=== PATIENT | female | born 1970 | race African-American/Black ===

== ENCOUNTER 2016-10-17 17:38 | Emergency (ER) | payer OTHER ==
[2016-10-17 17:41] VITALS: TEMP 98.2; BMI 48.1
[2016-10-17] MEDS ORDERED: ALBUTEROL SO4 0.083% IH SOL 2.5 MG/3 ML VIAL.NEB. NEB ONE ×4 (18:24→18:50)
[2016-10-17] MEDS ORDERED: methylPREDNISolone NA SUCC 125 MG/2 ML VIAL IVPB ONE (18:44)
[2016-10-17] MEDS ORDERED: FAMOTIDINE 20 MG/50 ML IVPB 50 ML IVPB ONE ×2 (18:46→18:51)
--- NOTE | 2016-10-17 18:47 | PDOC ---
[id number] is a 45 year old female with a PMHx of obesity, HTN, angioedema, anemia who presents to the ED with wheezing, cough, fever (Tmax = 102) for 2 days. She reports green productive cough. She reports that she is developing chest tightness with the wheezing and difficulty breathing. She is also reporting some cramps in her lower extremities. She denies nausea, vomiting, diarrhea, and constipation. She denies headache, dizziness. <Gudelia Chavez - Last Filed: 10/17/16 18:50> - General History Source: Patient Exam Limitations: No Limitations <Franklin Blair - Last Filed: 10/24/16 13:03> - General Chief Complaint: Chest Pain Stated Complaint: CHEST PAIN/ABD PAIN/BACK PAIN Time Seen by Provider: 10/17/16 18:43 Past History <Gudelia Chavez - Last Filed: 10/17/16 18:50> - Past Medical History Anemia: Yes Asthma: No GI Disorders: Yes HTN: Yes Psychiatric Problems: Yes (ANXIETY.) - Immunization History Immunization Up to Date: Yes - Psycho/Social/Smoking Cessation Hx Anxiety: Yes Suicidal Ideation: No Smoking Status: No Smoking History: Never smoked Have you smoked in the past 12 months: No Number of Cigarettes Smoked Daily: 0 If you are a former smoker, when did you quit?: 2002 Information on smoking cessation initiated: No Hx Alcohol Use: No Drug/Substance Use Hx: No Substance Use Type: None <Franklin Blair - Last Filed: 10/24/16 13:03> - Past Medical History Allergies/Adverse Reactions: Allergies Allergy/AdvReac Type Severity Reaction Status Date / Time Penicillins Allergy Unknown Verified 10/17/16 17:42 Fish Containing Products Allergy Verified 10/17/16 17:42 fish derived Allergy Itching Verified 10/17/16 17:42 RICARDO Inhibitors AdvReac Verified 10/17/16 17:42 Iodinated Contrast Media - AdvReac Verified 10/17/16 17:42 Oral and Home Medications: Ambulatory Orders Albuterol 2.5/Ipratropium 0.5 [Duoneb -] 1 amp NEB TID PRN #30 amp 10/18/16 Albuterol Sulfate Inhaler - [Ventolin HFA Inhaler -] 2 puff IH TID PRN #1 inhaler 10/18/16 Azithromycin [Zithromax Tri-Antonio (3 DAYS) -] 500 mg PO DAILY #3 tablet 10/18/16 Guaifenesin Dm [Robitussin Dm] 10 ml PO Q4H #1 bottle 10/18/16 Ibuprofen 800 mg PO TID PRN #30 tablet MDD 3 10/18/16 Review of Systems - Review of Systems Comments:: 10/17/16 18:50 GENERAL/CONSTITUTIONAL: (+) fever No chills. No weakness. HEAD, EYES, EARS, NOSE AND THROAT: No change in vision. No ear pain or discharge. No sore throat. CARDIOVASCULAR: (+) chest pain, shortness of breath. RESPIRATORY: (+) cough, wheezing, No hemoptysis. GASTROINTESTINAL: No nausea, vomiting, diarrhea or constipation. GENITOURINARY: No dysuria, frequency, or change in urination. MUSCULOSKELETAL: (+) lower extremity cramping. No joint or muscle swelling or pain. No neck or back pain. SKIN: No rash NEUROLOGIC: No headache, vertigo, loss of consciousness, or change in strength/ sensation. ENDOCRINE: No increased thirst. No abnormal weight change. HEMATOLOGIC/LYMPHATIC: No anemia, easy bleeding, or history of blood clots. ALLERGIC/IMMUNOLOGIC: No hives or skin allergy. <Gudelia Chavez - Last Filed: 10/17/16 18:50> *Physical Exam - Vital Signs Last Vital Signs Temp Pulse Resp BP Pulse Ox 98.2 F 90 26 H 140/63 100 10/17/16 17:39 10/17/16 18:48 10/17/16 18:48 10/17/16 18:48 10/17/16 18:48 - Physical Exam Comments: 10/17/16 18:51 GENERAL: Awake, alert, and fully oriented, obese HEAD: No signs of trauma EYES: PERRLA, EOMI, sclera anicteric, conjunctiva clear ENT: Auricles normal inspection, hearing grossly normal, nares patent, oropharynx clear without exudates. Moist mucosa NECK: Normal ROM, supple, no lymphadenopathy, JVD, or masses LUNGS: Diffuse expiratory wheezing. Speaking a few sentences. HEART: Regular rate and rhythm, normal S1 and S2, no murmurs, rubs or gallops ABDOMEN: Soft, nontender, normoactive bowel sounds. No guarding, no rebound. No masses EXTREMITIES: Normal range of motion, no edema. No clubbing or cyanosis. No cords, erythema, or tenderness NEUROLOGICAL: Cranial nerves II through XII grossly intact. Normal speech, normal gait SKIN: Warm, Dry, normal turgor, no rashes or lesions noted. <Gudelia Chavez A - Last Filed: 10/17/16 18:50> - Vital Signs Last Vital Signs Temp Pulse Resp BP Pulse Ox 98.2 F 113 H 20 139/98 99 10/17/16 17:39 10/17/16 17:39 10/17/16 17:39 10/17/16 17:39 10/17/16 17:39 <Franklin Blair - Last Filed: 10/24/16 13:03> Heart Score/ECG Review #1 ECG reviewed & interpreted by me at: 17:50 10/17/16 19:06 NSR 93, no std/paris, TWI III, normal axis, normal intervals, QTC 422 msec <Franklin Blair - Last Filed: 10/24/16 13:03> ED Treatment Course - Medications Given in the ED: ED Medications Discontinued Medications Generic Name Dose Route Start Last Admin Trade Name Freq PRN Reason Stop Dose Admin Albuterol Sulfate 1 amp 10/17/16 18:24 10/17/16 18:44 Ventolin 0.083% Nebulizer Soln - NEB 10/17/16 18:25 1 amp ONCE ONE Administration <Gudelia Chavez A - Last Filed: 10/17/16 18:50> - LABORATORY CBC & Chemistry Diagram: 10/17/16 18:40 10/17/16 21:52 - RADIOLOGY Radiology Studies Ordered: Category Date Time Status CHEST X-RAY PORTABLE* [RAD] Stat Radiology 10/17/16 18:44 Ordered - Medications Given in the ED: ED Medications Discontinued Medications Generic Name Dose Route Start Last Admin Trade Name Freq PRN Reason Stop Dose Admin Albuterol Sulfate 1 amp 10/17/16 18:24 10/17/16 18:44 Ventolin 0.083% Nebulizer Soln - NEB 10/17/16 18:25 1 amp ONCE ONE Administration <Franklin Blair - Last Filed: 10/24/16 13:03> Medical Decision Making - Medical Decision Making 10/17/16 18:45 A portion of this note was documented by scribe services under my direction. I have reviewed the details of the note, within reason, and agree with the documentation with the following case summary and management plan written by me. Patient treated in the ED. Nursing notes are reviewed and incorporated into the medical decision-making. Vital signs reviewed. Peripheral IV access obtained by the nurse, laboratory studies are drawn and sent, reviewed and interpreted by myself. Vital Signs Temp Pulse Resp BP Pulse Ox 98.2 F 113 H 20 139/98 99 10/17/16 17:39 10/17/16 17:39 10/17/16 17:39 10/17/16 17:39 10/17/16 17:39 45-year-old female with past medical history obesity, hypertension, angioedema, anemia presents with wheezing, cough and fevers for 2 days. Patient reports MAXIMUM TEMPERATURE of the 102 at home. She states that she's been having some greenish productive cough. Has been increasing difficulty breathing or wheezing. Patient's been given albuterol the past but denies history of asthma. Has not user upper or medications. She reports that she is developing chest tightness with the wheezing and difficulty breathing. She is also reporting some cramps in her lower extremities. We'll need to rule out upper respiratory infection such as bronchitis, pneumonia. We'll rule out influenza. Chest x-ray, labs including cultures and lactic acid. Nebulizers and steroids. Likely will need to initiate antibiotics and reassess. 10/17/16 19:02 Case signed out to [facility] ED attending DR. Lemus for further management and disposition. <Franklin Blair - Last Filed: 10/24/16 13:03> *DC/Admit/Observation/Transfer - Attestations Scribe Attestion: 10/17/16 18:51 Documentation prepared by Gudelia Chavez, acting as senior medical writer for Franklin Blair MD. <Gudelia Chavez - Last Filed: 10/17/16 18:50> <Franklin Blair - Last Filed: 10/24/16 13:03> Diagnosis at time of Disposition: Viral bronchitis, Cough, Abdominal pain, Abdominal muscle strain - Discharge Dispostion Disposition: HOME Condition at time of disposition: Stable - Prescriptions Prescriptions: Albuterol 2.5/Ipratropium 0.5 [Duoneb -] 1 amp NEB TID PRN #30 amp PRN Reason: Wheezing Ibuprofen 800 mg PO TID PRN #30 tablet MDD 3 PRN Reason: Pain Guaifenesin Dm [Robitussin Dm] 10 ml PO Q4H #1 bottle Albuterol Sulfate Inhaler - [Ventolin HFA Inhaler -] 2 puff IH TID PRN #1 inhaler PRN Reason: Wheezing Azithromycin [Zithromax Tri-Antonio (3 DAYS) -] 500 mg PO DAILY #3 tablet
[2016-10-17 18:48] VITALS: BP 140/63; PULSE 90
[2016-10-17] MEDS ORDERED: methylPREDNISolone NA SUCC 125 MG/2 ML VIAL ONE (18:50)
[2016-10-17 19:00] LABS: BASOPHIL 0.8 % (0-2.0); EOSINOPHIL 10.2 % (0-4.5); MCH 26.8 pg (25.7-33.7); MCHC 32.9 g/dl (32.0-36.0); MEAN CELL VOLUME 81.6 fl (80-96); MEAN PLT VOLUME 9.3 fl (7.5-11.1); NEUTROPHILS 54.8 % (42.8-82.8); PLATELET COUNT 328 K/MM3 (134-434); RDW 16.8 % (11.6-15.6); WHITE BLOOD COUNT 6.6 K/mm3 (4.0-10.0)
[2016-10-17 19:47] LABS: PLATELET COMMENT2 FEW LARGE PLTS; PLATELET ESTIMATE ADEQUATE (NORMAL)
[2016-10-17] MEDS ORDERED: MAGNESIUM SULF 50% (8.12 MEQ/2 ML-1 GM VIAL) IVPB ONE (22:06)
--- NOTE | 2016-10-17 22:08 | PDOC ---
*Physical Exam - Vital Signs Last Vital Signs Temp Pulse Resp BP Pulse Ox 98.2 F 90 26 H 140/63 100 10/17/16 17:39 10/17/16 18:48 10/17/16 18:48 10/17/16 18:48 10/17/16 18:48 ED Treatment Course - LABORATORY CBC & Chemistry Diagram: 10/17/16 18:40 10/17/16 21:52 - ADDITIONAL ORDERS Additional order review: Laboratory Results 10/17/16 10/17/16 10/17/16 18:40 18:40 18:40 Sodium Cancelled Potassium Cancelled Chloride Cancelled Carbon Dioxide Cancelled Anion Gap Cancelled BUN Cancelled Creatinine Cancelled Creat Clearance w eGFR Cancelled Random Glucose Cancelled Lactic Acid 0.774 Calcium Cancelled Total Bilirubin Cancelled AST Cancelled ALT Cancelled Alkaline Phosphatase Cancelled Creatine Kinase Cancelled Troponin I Cancelled Total Protein Cancelled Albumin Cancelled Lipase Cancelled Serum , Qual Negative 10/17/16 18:48 Influenza Types A,B Antigen (LISA) - Final Nasopharyngeal Swab - Final 10/17/16 18:40 RBC 4.51 MCV 81.6 MCHC 32.9 RDW 16.8 H D MPV 9.3 Neutrophils % 54.8 Lymphocytes % 24.4 D Monocytes % 9.8 Eosinophils % 10.2 H D Basophils % 0.8 - Medications Given in the ED: ED Medications Discontinued Medications Generic Name Dose Route Start Last Admin Trade Name Ederq PRN Reason Stop Dose Admin Albuterol Sulfate 1 amp 10/17/16 18:24 10/17/16 18:44 Ventolin 0.083% Nebulizer Soln - NEB 10/17/16 18:25 1 amp ONCE ONE Administration Albuterol Sulfate 2 amp 10/17/16 18:45 10/17/16 18:58 Ventolin 0.083% Nebulizer Soln - NEB 10/17/16 18:46 2 amp ONCE ONE Administration Famotidine/Sodium Chloride 50 mls @ 100 mls/hr 10/17/16 18:46 10/17/16 19:30 Pepcid 20 Mg Premixed Ivpb - IVPB 10/17/16 19:15 100 mls/hr ONCE ONE Administration Methylprednisolone Sodium Succinate 125 mg 10/17/16 18:44 10/17/16 18:50 Solu-Medrol - IVPB 10/17/16 18:45 125 mg ONCE ONE Administration Medical Decision Making - Medical Decision Making 10/17/16 22:07 Pt received on sign out comfortable; still have wheezing. She will be observedl ; magnesium is ordered. 10/18/16 01:21 She is much clearer and feels subjective;y improved. She will be discharged with negative evaluation; azithromycin 3 day pack, albuterol/ipratropium. MDI albuterol; she has follow up scheduled with the PMD and I have encouraged the patient to return if there is any change otherwise in symptoms. *DC/Admit/Observation/Transfer Diagnosis at time of Disposition: Viral bronchitis, Cough Abdominal pain Qualifiers: Abdominal location: generalized Qualified Code(s): R10.84 - Generalized abdominal pain Abdominal muscle strain Qualifiers: Encounter type: initial encounter Qualified Code(s): S39.011A - Strain of muscle, fascia and tendon of abdomen, initial encounter - Discharge Dispostion Disposition: HOME Condition at time of disposition: Good Admit: No Decision to Admit order Date/Time: 10/18/16 01:23 - Prescriptions Prescriptions: Albuterol 2.5/Ipratropium 0.5 [Duoneb -] 1 amp NEB TID PRN #30 amp PRN Reason: Wheezing Ibuprofen 800 mg PO TID PRN #30 tablet MDD 3 PRN Reason: Pain Guaifenesin Dm [Robitussin Dm] 10 ml PO Q4H #1 bottle Albuterol Sulfate Inhaler - [Ventolin HFA Inhaler -] 2 puff IH TID PRN #1 inhaler PRN Reason: Wheezing Azithromycin [Zithromax Tri-Antonio (3 DAYS) -] 500 mg PO DAILY #3 tablet
[2016-10-17] MEDS ORDERED: MAGNESIUM SULF 50% (8.12 MEQ/2 ML-1 GM VIAL) ONE (22:17)
[2016-10-17 22:55] LABS: ALBUMIN 3.6 g/dl (3.4-5.0); ANION GAP 9 (8-16); BILIRUBIN,TOTAL 0.3 mg/dL (0.2-1.0); CALCIUM 8.6 mg/dL (8.5-10.1); CO2 24 mmol/L (21-32); CREATININE 0.6 mg/dL (0.55-1.02); GLUCOSE,RANDOM 110 mg/dL (74-106); SGOT/AST 21 U/L (15-37); SGPT/ALT 25 U/L (12-78); TOT PROT 7.8 g/dl (6.4-8.2)
[2016-10-17 22:58] LABS: ALK PHOS 108 U/L (45-117); TROPONIN I < 0.02 ng/ml (0.00-0.05)
[2016-10-18] MEDS ORDERED: OXYCODONE/APAP 5/325MG COMBO TABLET PO ONE (00:09)
[2016-10-18] MEDS ORDERED: OXYCODONE/APAP 5/325MG COMBO TABLET ONE (00:14)
[2016-10-18 01:05] LABS: PH,URINE 5.5 (5.0-8.0); URINE APPEARANCE TURBID; URINE BILIRUBIN NEGATIVE (NEGATIVE); URINE BLOOD 3+ (NEGATIVE); URINE COLOR RED; URINE GLUCOSE (UA) NEGATIVE (NEGATIVE); URINE KETONE TRACE (NEGATIVE); URINE LEUK ESTERASE NEGATIVE (NEGATIVE); URINE NITRITE NEGATIVE (NEGATIVE); URINE PROTEIN 1+ (NEGATIVE); URINE UROBILINOGEN 0.2 E.U/dl E.U./dl (0.2-1.0)
[2016-10-18 01:07] LABS: URINE BACTERIA FEW /hpf (NONE SEEN); URINE RBC >100 /hpf (0-3); URINE WBC NONE SEEN /hpf (3-5)
--- NOTE | 2016-10-18 12:47 | EKG ---
Test Reason : Blood Pressure : / mmHG Vent. Rate : 093 BPM Atrial Rate : 093 BPM P-R Int : 150 ms QRS Dur : 072 ms QT Int : 340 ms P-R-T Axes : 038 004 009 degrees QTc Int : 422 ms NORMAL SINUS RHYTHM POSSIBLE LEFT ATRIAL ENLARGEMENT BORDERLINE ECG WHEN COMPARED WITH ECG OF 08-APR-2016 06:10, NO SIGNIFICANT CHANGE WAS FOUND BASELINE ARTIFACT Confirmed by JAYLA BEAR, JOY ([id number]) on 10/18/2016 12:47:31 PM Referred By: Confirmed By:JOY DICKERSON MD
== END 2016-10-18 01:37 | disposition home or self-care (01) ==
LOC: JER 17:38
PROC: 3E0F7GC Introduction of Other Therapeutic Substance into Respiratory Tract, Via Natural or Artificial Opening (ICD-10-PCS; principal; 2016-10-17)
PROC: 3E0F7GC Introduction of Other Therapeutic Substance into Respiratory Tract, Via Natural or Artificial Opening (ICD-10-PCS; 2016-10-17)
PROC: 3E033GC Introduction of Other Therapeutic Substance into Peripheral Vein, Percutaneous Approach (ICD-10-PCS; 2016-10-17)
DX: J20.8 Acute bronchitis due to other specified organisms (principal); B97.89 Other viral agents as the cause of diseases classified elsewhere; S39.011A Strain of muscle, fascia and tendon of abdomen, initial encounter; X58.XXXA Exposure to other specified factors, initial encounter; Y93.89 Activity, other specified; Y92.9 Unspecified place or not applicable
CPT/HCPCS: 36415; 71010-TC; 80053; 81003; 81015; 82550; 83605; 83690; 84484; 84703; 85025; 87040; 87804; 93005; 93010; 99285-25

== ENCOUNTER 2017-05-06 19:13 | Emergency (ER) | payer OTHER ==
[2017-05-06 19:19] VITALS: BMI 51.2
[2017-05-06] MEDS ORDERED: ALBUTEROL SO4 2.5/IPRATROPIUM 0.5 INH SOL 3 ML VIAL.NEB. NEB ONE ×2 (19:30→20:27)
--- NOTE | 2017-05-06 19:41 | PDOC ---
History of Present Illness - General History Source: Patient Exam Limitations: No Limitations - History of Present Illness Initial Comments: 05/06/17 20:12 The patient is a 46 year old female, with a significant past medical history of asthma (diagnosed within the past year) obesity, HTN, anxiety, angioedema, and anemia, who presents to the emergency department with shortness of breath and chest pain for approximately 2 days. The patient reports developing shortness of breath, chest pain, midline back pain, and a cough 2 days ago. Patient reports her chest pain is localized midsternally, nonradiating in nature, and exacerbated with cough. She reports her cough is productive of clear sputum, but denies any fever, chills, headache, or dizziness. She reports some palpitations, but denies diaphoresis or lower extremity edema. Patient reports she typically uses an Albuterol inhaler for her symptoms, but states it has not been helping. She reports associated nausea and vomiting(X3 episodes, nonbloody/ nonbilious), but denies any abdominal pain, diarrhea, or constipation. 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 She admits she has not had her flu shot, and denies any recent travel. Allergies: Penicillins, RICARDO inhibitors, iodinated contrast Past Surgical History: Left pinky Social History: 1 cigar a week. Former smoker(Quit 2003, but started again). No ETOH or recreational drug use. PCP: Dr. Britney Wang <Casey Maloney - Last Filed: 05/06/17 20:11> <Liyah Zavala - Last Filed: 05/08/17 01:08> - General Chief Complaint: Asthma Stated Complaint: CHEST PAIN Time Seen by Provider: 05/06/17 19:21 Past History <Casey Maloney - Last Filed: 05/06/17 20:11> - Past Medical History Anemia: Yes Asthma: No COPD: No GI Disorders: Yes HTN: Yes Psychiatric Problems: Yes (ANXIETY.) - Immunization History Immunization Up to Date: Yes - Suicide/Smoking/Psychosocial Hx Smoking Status: No Smoking History: Never smoked Have you smoked in the past 12 months: No Number of Cigarettes Smoked Daily: 0 If you are a former smoker, when did you quit?: 2002 Hx Alcohol Use: No Drug/Substance Use Hx: No Substance Use Type: None <Liyah Zavala - Last Filed: 05/08/17 01:08> - Past Medical History Allergies/Adverse Reactions: Allergies Allergy/AdvReac Type Severity Reaction Status Date / Time Penicillins Allergy Unknown Verified 05/06/17 19:19 Fish Containing Products Allergy Verified 05/06/17 19:19 fish derived Allergy Itching Verified 05/06/17 19:19 RICARDO Inhibitors AdvReac Verified 05/06/17 19:19 Iodinated Contrast- Oral and AdvReac Verified 05/06/17 19:19 IV Dye Home Medications: Ambulatory Orders Albuterol 2.5/Ipratropium 0.5 [Duoneb -] 1 amp NEB TID PRN #30 amp 10/18/16 Albuterol Sulfate Inhaler - [Ventolin HFA Inhaler -] 2 puff IH TID PRN #1 inhaler 10/18/16 Albuterol 0.083% Nebulizer Alisha [Ventolin 0.083% Nebulizer Soln -] 1 neb NEB Q6H #20 vial 05/06/17 Amlodipine Besylate [Norvasc -] 2.5 mg PO DAILY 05/06/17 Azithromycin [Zithromax -] 500 mg PO DAILY #4 tablet 05/06/17 Diphenhydramine HCl [Benadryl -] 25 mg PO Q6H #28 capsule 05/06/17 Esomeprazole Mag Trihydrate [NexIUM for SUSP] 40 mg PO DAILY 05/06/17 Prednisone [Deltasone -] 2 tab PO DAILY #10 tablet 05/06/17 Review of Systems - Review of Systems Able to Perform ROS?: Yes Comments:: 05/06/17 20:13 GENERAL/CONSTITUTIONAL: No fever or chills. No weakness. HEAD, EYES, EARS, NOSE AND THROAT: No change in vision. No ear pain or discharge. No sore throat. CARDIOVASCULAR: Yes chest pain and shortness of breath. RESPIRATORY: Yes cough productive of clear sputum. No wheezing, or hemoptysis. GASTROINTESTINAL: Yes nausea, vomiting. No diarrhea or constipation. GENITOURINARY: No dysuria, frequency, or change in urination. MUSCULOSKELETAL: Yes midline back pain. No joint or muscle swelling or pain. No neck pain. SKIN: No rash NEUROLOGIC: No headache, vertigo, loss of consciousness, or change in strength/ sensation. ENDOCRINE: No increased thirst. No abnormal weight change. HEMATOLOGIC/LYMPHATIC: No anemia, easy bleeding, or history of blood clots. ALLERGIC/IMMUNOLOGIC: No hives or skin allergy. <Casey Maloney - Last Filed: 05/06/17 20:11> *Physical Exam - Vital Signs Last Vital Signs Temp Pulse Resp BP Pulse Ox 98.4 F 101 H 20 114/88 99 05/06/17 19:16 05/06/17 19:16 05/06/17 19:16 05/06/17 19:16 05/06/17 19:16 - Physical Exam Comments: 05/06/17 20:14 GENERAL: Awake, alert, and fully oriented, in no acute distress HEAD: No signs of trauma EYES: PERRLA, EOMI, sclera anicteric, conjunctiva clear ENT: Auricles normal inspection, hearing grossly normal, nares patent, oropharynx clear without exudates. Moist mucosa NECK: Normal ROM, supple, no lymphadenopathy, JVD, or masses LUNGS: Breath sounds equal, clear to auscultation bilaterally. No wheezes, and no crackles HEART: Tachycardic. Regular rhythm, normal S1 and S2, no murmurs, rubs or gallops ABDOMEN: Soft, nontender, normoactive bowel sounds. No guarding, no rebound. No masses BACK: Midline tenderness T10-L2, reproducible to palpation. EXTREMITIES: Normal range of motion, no edema. No clubbing or cyanosis. No cords, erythema, or tenderness NEUROLOGICAL: Cranial nerves II through XII grossly intact. Normal speech, normal gait SKIN: Warm, Dry, normal turgor, no rashes or lesions noted. <Casey Maloney - Last Filed: 05/06/17 20:11> - Vital Signs Last Vital Signs Temp Pulse Resp BP Pulse Ox 98.4 F 101 H 20 114/88 99 05/06/17 19:16 05/06/17 19:16 05/06/17 19:16 05/06/17 19:16 05/06/17 19:16 <Liyah Zavala - Last Filed: 05/08/17 01:08> ED Treatment Course - Medications Given in the ED: ED Medications Discontinued Medications Generic Name Dose Route Start Last Admin Trade Name Freq PRN Reason Stop Dose Admin Albuterol/Ipratropium 1 amp 05/06/17 19:30 05/06/17 19:35 Duoneb - NEB 05/06/17 19:31 1 amp ONCE ONE Administration <Casey Maloney - Last Filed: 05/06/17 20:11> - Medications Given in the ED: ED Medications Discontinued Medications Generic Name Dose Route Start Last Admin Trade Name Linda PRN Reason Stop Dose Admin Albuterol/Ipratropium 1 amp 05/06/17 19:30 05/06/17 19:35 Duoneb - NEB 05/06/17 19:31 1 amp ONCE ONE Administration <Liyah Zavala - Last Filed: 05/08/17 01:08> Medical Decision Making - Medical Decision Making 05/08/17 01:06 Pt comes with asthma exacerbation and SOB; teated in the ER and vastly imrpoved. She will go home with meds, nebs for her home nebulizer and abx for atypical pneumonia. Pt will also be treated with steroids. FOllow with PMD. We counselled pt to stop smoking cigars. <Liyah Zavala - Last Filed: 05/08/17 01:08> *DC/Admit/Observation/Transfer - Attestations Scribe Attestion: 05/06/17 20:16 Documentation prepared by Casey Maloney, acting as medical accountant for Liyah Zavala MD. <Casey Maloney - Last Filed: 05/06/17 20:11> - Discharge Dispostion Admit: No <Liyah Zavala - Last Filed: 05/08/17 01:08> Diagnosis at time of Disposition: Asthma exacerbation, Atypical pneumonia, Viral illness, Chest congestion - Discharge Dispostion Disposition: HOME Condition at time of disposition: Improved - Prescriptions Prescriptions: Diphenhydramine HCl [Benadryl -] 25 mg PO Q6H #28 capsule Prednisone [Deltasone -] 2 tab PO DAILY #10 tablet Albuterol 0.083% Nebulizer Alisha [Ventolin 0.083% Nebulizer Soln -] 1 neb NEB Q6H #20 vial Azithromycin [Zithromax -] 500 mg PO DAILY #4 tablet - Referrals Referrals: Britney Wang MD [Primary Care Provider] -
[2017-05-06] MEDS ORDERED: diphenhydrAMINE HCL 25 MG CAPSULE (FP) PO ONE ×2 (21:21→21:28)
[2017-05-06] MEDS ORDERED: ACETAMINOPHEN 325 MG TABLET (FP) PO ONE (21:21)
[2017-05-06] MEDS ORDERED: DEXAMETHASONE LIQUID 0.5 MG/5 ML 240 ML BULK BOTTLE PO ONE (21:21)
[2017-05-06] MEDS ORDERED: AZITHROMYCIN 250 MG TABLET PO ONE (21:22)
[2017-05-06] MEDS ORDERED: DEXAMETHASONE SOD PHOSPHATE 10 MG/1 ML VIAL ONE (21:28)
[2017-05-06] MEDS ORDERED: ACETAMINOPHEN 325 MG TABLET (FP) ONE (21:28)
[2017-05-06] MEDS ORDERED: AZITHROMYCIN 250 MG TABLET ONE (21:28)
[2017-05-06 22:45] VITALS: BP 108/58; PULSE 106; TEMP 98.2
--- NOTE | 2017-05-10 14:01 | EKG ---
Test Reason : Blood Pressure : / mmHG Vent. Rate : 106 BPM Atrial Rate : 106 BPM P-R Int : 154 ms QRS Dur : 080 ms QT Int : 340 ms P-R-T Axes : 046 002 009 degrees QTc Int : 451 ms SINUS TACHYCARDIA POSSIBLE LEFT ATRIAL ENLARGEMENT BORDERLINE ECG WHEN COMPARED WITH ECG OF 17-OCT-2016 17:48, NO SIGNIFICANT CHANGE WAS FOUND Confirmed by ALIZA ROBIN MD ([id number]) on 05/10/2017 2:01:03 PM Referred By: Confirmed By:ALIZA ROBIN MD
== END 2017-05-06 22:44 | disposition home or self-care (01) ==
LOC: JER 19:13
PROC: 3E0F7GC Introduction of Other Therapeutic Substance into Respiratory Tract, Via Natural or Artificial Opening (ICD-10-PCS; principal; 2017-05-06)
PROC: 3E0F7GC Introduction of Other Therapeutic Substance into Respiratory Tract, Via Natural or Artificial Opening (ICD-10-PCS; 2017-05-06)
DX: J45.901 Unspecified asthma with (acute) exacerbation (principal); J18.9 Pneumonia, unspecified organism; I10 Essential (primary) hypertension; D64.9 Anemia, unspecified; Z87.891 Personal history of nicotine dependence
CPT/HCPCS: 93005; 93010; 94640; 99281-25

== ENCOUNTER 2017-07-10 15:52 | Emergency (ER) | payer OTHER ==
--- NOTE | 2017-07-10 16:15 | PDOC ---
Rapid Medical Evaluation Time Seen by Provider: 07/10/17 16:07 Medical Evaluation: Allergies Allergy/AdvReac Type Severity Reaction Status Date / Time Penicillins Allergy Unknown Verified 05/06/17 19:19 Fish Containing Products Allergy Verified 05/06/17 19:19 fish derived Allergy Itching Verified 05/06/17 19:19 RICARDO Inhibitors AdvReac Verified 05/06/17 19:19 Iodinated Contrast- Oral and AdvReac Verified 05/06/17 19:19 IV Dye 07/10/17 16:15 Pt presents to the ED: cough, congestion x 4 days, hx of asthma, did 2 nebs at home with no improvement Pt on brief exam: lcta, vss, Pt ordered for: none Pt to proceed to the ED Discharge Disposition - Diagnosis Cough - Referrals - Patient Instructions - Post Discharge Activity
[2017-07-10 16:20] VITALS: BP 138/90; PULSE 94; TEMP 98.4; BMI 52.8
--- NOTE | 2017-07-10 17:57 | PDOC ---
History of Present Illness - General Chief Complaint: Respiratory Stated Complaint: SOB Time Seen by Provider: 07/10/17 16:07 - History of Present Illness Initial Comments: 07/10/17 17:51 CHIEF COMPLAINT: cough, congestion HISTORY OF PRESENT ILLNESS: 46 yo F with hx of HTN and angioedema [facility] with cough and congestion x 6 days. Patient states she felt like she had a fever and chills the first two days but none since then. She reports pain to her chest "when I have coughing fits" but denies chest pain otherwise. 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 Patient denies vomiting, diarrhea. PAST MEDICAL HISTORY: as per HPI FAMILY HISTORY: Denies SOCIAL HISTORY: Denies tobacco, alcohol, illicit drug use. SURGICAL HISTORY: Denies ALLERGIES: PCN REVIEW OF SYSTEMS as per [facility] PHYSICAL EXAM General Appearance: Well-appearing, appropriately dressed. No apparent distress. HEENT: EOMI, PERRLA, normal ENT inspection, normal voice, TMs normal, pharynx normal. No conjunctival pallor. No photophobia, scleral icterus. Neck: Supple. Trachea midline. No tenderness, rigidity, carotid bruit, stridor , lymphadenopathy, or thyromegaly. Respiratory/Chest: Dry cough. Lungs CTAB. No shortness of breath, chest tenderness, respiratory distress, accessory muscle use. No crackles, rales, rhonchi, stridor, wheezing, dullness Cardiovascular: RRR. S1, S2. Musculoskeletal/Extremities: Normal inspection. FROM of all extremities, normal capillary refill. Pelvis Stable. No CVA tenderness. No tenderness to extremities, pedal edema, swelling, erythema or deformity. Integumentary: Appropriate color, dry, warm. No cyanosis, erythema, jaundice or rash Neurologic: wood club neck whipper II-XII intact. Fully oriented, alert. Appropriate mood/affect. Motor strength 5/5. No appreciable EOM palsy, facial droop or sensory deficit. 07/10/17 17:53 Past History - Past Medical History Allergies/Adverse Reactions: Allergies Allergy/AdvReac Type Severity Reaction Status Date / Time Penicillins Allergy Unknown Verified 07/10/17 16:16 Fish Containing Products Allergy Verified 07/10/17 16:16 fish derived Allergy Itching Verified 07/10/17 16:16 RICARDO Inhibitors AdvReac Verified 07/10/17 16:16 Iodinated Contrast- Oral and AdvReac Verified 07/10/17 16:16 IV Dye Home Medications: Ambulatory Orders Amlodipine Besylate [Norvasc -] 2.5 mg PO DAILY 05/06/17 Esomeprazole Mag Trihydrate [NexIUM for SUSP] 40 mg PO DAILY 05/06/17 Azithromycin [Zithromax 250mg Tablets -] 250 mg PO UTDICT #6 tab 07/10/17 Benzonatate [Mimi Pearls -] 100 mg PO TID PRN #21 capsule 07/10/17 Pseudoephedrine HCl [Sudafemarlene 12-Hour] 120 mg PO BID PRN #14 tablet.er 07/10/17 Anemia: Yes Asthma: No COPD: No GI Disorders: Yes HTN: Yes Psychiatric Problems: Yes (ANXIETY.) - Immunization History Immunization Up to Date: Yes - Suicide/Smoking/Psychosocial Hx Smoking Status: No Smoking History: Never smoked Have you smoked in the past 12 months: No Number of Cigarettes Smoked Daily: 0 If you are a former smoker, when did you quit?: 2002 Hx Alcohol Use: No Drug/Substance Use Hx: No Substance Use Type: None Respiratory Specific PMHX - Complaint Specific PMHX Angina: No Bronchitis: No Pneumonia: No Pulmonary Embolus: No TB (Tuberculosis): No *Physical Exam - Vital Signs Last Vital Signs Temp Pulse Resp BP Pulse Ox 98.4 F 94 H 19 138/90 97 07/10/17 16:16 07/10/17 16:16 07/10/17 16:16 07/10/17 16:16 07/10/17 16:16 Medical Decision Making - Medical Decision Making 07/10/17 17:56 46 yo F with hx of HTN and angioedema presents to [facility] with cough and congestion x 6 days. Clinical presentation consistent with acute bronchitis, given duration of symptoms will treat with abx. -mimi de souza sudafed Advised patient to take medication as prescribed and follow up with PCP if symptoms persist. Advised patient of signs and symptoms for return to ED. Patient verbalized understanding and agrees to plan. *DC/Admit/Observation/Transfer Diagnosis at time of Disposition: Cough, Bronchitis - Discharge Dispostion Disposition: HOME Condition at time of disposition: Stable Admit: No - Prescriptions Prescriptions: Azithromycin [Zithromax 250mg Tablets -] 250 mg PO UTDICT #6 tab Benzonatate [Tessalon Pearls -] 100 mg PO TID PRN #21 capsule PRN Reason: Cough Pseudoephedrine HCl [Sudafed 12-Hour] 120 mg PO BID PRN #14 tablet.er PRN Reason: congestion, runny nose - Referrals Referrals: Britney Wang MD [Primary Care Provider] - - Patient Instructions Printed Discharge Instructions: DI for Acute Bronchitis Additional Instructions: Please take medications as prescribed. Follow up with Dr. Wang if symptoms persist past 3-5 days. If you develop fever unrelieved by Motrin or Tylenol, persistent vomiting or diarrhea, or any new or worsening symptoms, please return to the ER. - Post Discharge Activity
== END 2017-07-10 18:05 | disposition home or self-care (01) ==
LOC: JERFT 15:52
DX: J40 Bronchitis, not specified as acute or chronic (principal); I10 Essential (primary) hypertension
CPT/HCPCS: 99281-25

== ENCOUNTER 2017-07-16 17:06 | Emergency (ER) | payer OTHER ==
[2017-07-16 17:10] VITALS: BP 121/56; PULSE 92; TEMP 98.8; BMI 52.8
--- NOTE | 2017-07-16 19:24 | PDOC ---
History of Present Illness - General History Source: Patient Exam Limitations: No Limitations - History of Present Illness Initial Comments: 07/16/17 19:38 The patient is a 46 year old female with a significant past medical history of asthma, HTN, and anemia who presents to the ED with several days of cough. The patient was recently seen in the ED 6 days ago for cough and nasal congestion and was diagnosed with bronchitis and discharged home with Z-pack. Patient states she does not feel better and she still has a dry cough. She states her cough is worsened at night and she reports chest pain associated with her cough. Patient notes she took an albuterol treatment at home with no relief of present symptoms. Denies fever or chills. Denies abdominal pain, nausea, vomiting, or diarrhea. Denies dysuria or change in urinary output. Denies any other symptoms. <Damaris Puckett - Last Filed: 07/16/17 19:38> <Leilani Christine - Last Filed: 07/16/17 22:45> - General Chief Complaint: Respiratory Stated Complaint: S.O.B Time Seen by Provider: 07/16/17 18:17 Past History <Damaris Puckett - Last Filed: 07/16/17 19:38> - Past Medical History Anemia: Yes Asthma: No COPD: No GI Disorders: Yes (ACID REFLUX) HTN: Yes Psychiatric Problems: Yes (ANXIETY.) - Immunization History Immunization Up to Date: Yes - Suicide/Smoking/Psychosocial Hx Smoking Status: No Smoking History: Former smoker Have you smoked in the past 12 months: No Number of Cigarettes Smoked Daily: 0 If you are a former smoker, when did you quit?: 2 YRS Information on smoking cessation initiated: No Hx Alcohol Use: Yes (SOCIAL) Drug/Substance Use Hx: No Substance Use Type: None <Leilani Christine - Last Filed: 07/16/17 22:45> - Past Medical History Allergies/Adverse Reactions: Allergies Allergy/AdvReac Type Severity Reaction Status Date / Time Penicillins Allergy Unknown Verified 07/16/17 17:10 Fish Containing Products Allergy Verified 07/16/17 17:10 fish derived Allergy Itching Verified 07/16/17 17:10 RICARDO Inhibitors AdvReac Verified 07/16/17 17:10 Iodinated Contrast- Oral and AdvReac Verified 07/16/17 17:10 IV Dye Home Medications: Ambulatory Orders Amlodipine Besylate [Norvasc -] 2.5 mg PO DAILY 05/06/17 Esomeprazole Mag Trihydrate [NexIUM for SUSP] 40 mg PO DAILY 05/06/17 Benzonatate [Tessalon Pearls -] 100 mg PO TID PRN #21 capsule 07/10/17 Pseudoephedrine HCl [Sudafed 12-Hour] 120 mg PO BID PRN #14 tablet.er 07/10/17 Albuterol 0.083% Nebulizer Alisha [Ventolin 0.083% Nebulizer Soln -] 1 neb NEB QID PRN #20 vial 07/16/17 Albuterol Sulfate Inhaler - [Ventolin Hfa Inhaler -] 1 - 2 inh PO Q4H PRN #1 inhaler 07/16/17 Azithromycin [Zithromax Tri-Antonio (3 DAYS) -] 500 mg PO DAILY #3 tablet 07/16/17 Methylprednisolone [Medrol Dose Antonio] 4 mg PO ASDIR #21 tablet 07/16/17 Respiratory Specific PMHX - Complaint Specific PMHX Angina: No Bronchitis: No Pneumonia: No Pulmonary Embolus: No TB (Tuberculosis): No <EmmettLeilani Alondra - Last Filed: 07/16/17 22:45> Review of Systems - Review of Systems Able to Perform ROS?: Yes Comments:: 07/16/17 19:38 CONSTITUTIONAL: Absent: fever, chills, diaphoresis, generalized weakness, malaise, loss of appetite HEENT: Absent: rhinorrhea, nasal congestion, throat pain, throat swelling, difficulty swallowing, mouth swelling, ear pain, eye pain, visual Changes CARDIOVASCULAR: Absent: syncope, palpitations, irregular heart rate, lightheadedness, peripheral edema RESPIRATORY: + cough, chest pain Absent:shortness of breath, dyspnea with exertion, orthopnea, wheezing, stridor , hemoptysis GASTROINTESTINAL: Absent: abdominal pain, abdominal distension, nausea, vomiting, diarrhea, constipation, melena, hematochezia GENITOURINARY: Absent: dysuria, frequency, urgency, hesitancy, hematuria, flank pain, genital pain MUSCULOSKELETAL: Absent: myalgia, arthralgia, joint swelling SKIN: Absent: rash, itching, pallor HEMATOLOGIC/IMMUNOLOGIC: Absent: easy bleeding, easy bruising, lymphadenopathy, frequent infections ENDOCRINE: Absent: unexplained weight gain, unexplained weight loss, heat intolerance, cold intolerance NEUROLOGIC: Absent: headache, focal weakness or paresthesias, dizziness, unsteady gait, seizure, mental status changes, bladder or bowel incontinence PSYCHIATRIC: Absent: anxiety, depression, suicidal or homicidal ideation, hallucinations. All Other Systems: Reviewed and Negative <Damaris Puckett - Last Filed: 07/16/17 19:38> *Physical Exam - Vital Signs Last Vital Signs Temp Pulse Resp BP Pulse Ox 98.8 F 92 H 24 121/56 99 07/16/17 17:07 07/16/17 17:07 07/16/17 17:07 07/16/17 17:07 07/16/17 17:07 - Physical Exam Comments: 07/16/17 19:38 GENERAL: + morbidly obese Awake and alert. No acute distress. HEENT: Normocephalic, atraumatic. PERRLA, EOMI. No conjunctival pallor. Sclera are non- icteric. Moist mucous membranes. Oropharynx is clear. NECK: Supple. Full ROM. No JVD. Carotid pulses 2+ and symmetric, without bruits. No thyromegaly. NCo lymphadenopathy. CARDIOVASCULAR: Regular rate and rhythm. No murmurs, rubs, or gallops. Distal pulses are 2+ and symmetric. PULMONARY: No evidence of respiratory distress. Lungs clear to auscultation bilaterally. No wheezing, rales or rhonchi. ABDOMINAL: Soft. Non-tender. Non-distended. No rebound or guarding. No organomegaly. Normoactive bowel sounds. MUSCULOSKELETAL Normal range of motion at all joints. No bony deformities or tenderness. No CVA tenderness. EXTREMITIES: No cyanosis. No clubbing. No edema. No calf tenderness. SKIN: Warm and dry. Normal capillary refill. No rashes. No jaundice. NEUROLOGICAL: Alert, awake, appropriate. Cranial nerves 2-12 intact. No deficits to light touch and temperature in face, upper extremities and lower extremities. No motor deficits in the in face, upper extremities and lower extremities. Normoreflexic in the upper and lower extremities. Normal speech. Toes are down- going bilaterally. Gait is normal without ataxia. PSYCHIATRIC: Cooperative. Good eye contact. Appropriate mood and affect. <Damaris Puckett - Last Filed: 07/16/17 19:38> - Vital Signs Last Vital Signs Temp Pulse Resp BP Pulse Ox 98.8 F 92 H 24 121/56 99 07/16/17 17:07 07/16/17 17:07 07/16/17 17:07 07/16/17 17:07 07/16/17 17:07 <Leilani Christine - Last Filed: 07/16/17 22:45> Medical Decision Making - Medical Decision Making 07/16/17 22:41 46-year-old woman presents because of persistent coughing. She was seen about 4 days ago for the same complaint and returns because she started coughing. She said she is taking Zithromax. Past medical history asthma, morbid obesity, angioedema, status post ricardo inhibitors and CAT scan contrast Patient is not hypoxic, she has no fever. ROS She does not have any substernal chest pain or dyspnea on exertion. No nausea, no vomiting or fever or chills, no upper back pain. She says that the coughing is worse at night when she lays back. She was seen about 4 days ago and placed on Tessalon perils and nasal decongestant. She had scant wheezing on exam. she received resp tx and prednisone Chest x-ray did not show any infiltrates, no effusions, normal mediastinum and normal heart silhouette. EKG was normal sinus rhythm with minimal voltage criteria for LVH. QTc interval = 440 Patient was given Robitussin-AC. She states that she's had codeine in the past and has never had a bad reaction to it IMP persistent cough Diff diag includes cough variant asthma, asthmatic bronchitis <Leilani Christine - Last Filed: 07/16/17 22:45> *DC/Admit/Observation/Transfer - Attestations Scribe Attestion: 07/16/17 19:38 Documentation prepared by Damaris Puckett, acting as medical administrative technician for Leilani Christine MD <Damaris Puckett - Last Filed: 07/16/17 19:38> <Leilani Christine - Last Filed: 07/16/17 22:45> Diagnosis at time of Disposition: Cough - Discharge Dispostion Disposition: HOME Condition at time of disposition: Stable - Prescriptions Prescriptions: Albuterol 0.083% Nebulizer Alisha [Ventolin 0.083% Nebulizer Soln -] 1 neb NEB QID PRN #20 vial PRN Reason: Wheezing Albuterol Sulfate Inhaler - [Ventolin Hfa Inhaler -] 1 - 2 inh PO Q4H PRN #1 inhaler PRN Reason: Wheezing Azithromycin [Zithromax Tri-Antonio (3 DAYS) -] 500 mg PO DAILY #3 tablet Methylprednisolone [Medrol Dose Antonio] 4 mg PO ASDIR #21 tablet - Referrals Referrals: Britney Wang MD [Primary Care Provider] - - Patient Instructions Printed Discharge Instructions: DI for Cough -- Adult Additional Instructions: 1. Please case picker your medications at [facility] 2. Follow up with your regular physician this week 3. Take tylenol or aleve or motrin for musculoskeletal pain - Post Discharge Activity
[2017-07-16] MEDS ORDERED: predniSONE 20 MG TABLET (UD) PO ONE (20:02)
[2017-07-16] MEDS ORDERED: ALBUTEROL SO4 2.5/IPRATROPIUM 0.5 INH SOL 3 ML VIAL.NEB. NEB ONE ×2 (20:03→20:19)
[2017-07-16] MEDS ORDERED: predniSONE 20 MG TABLET (UD) ONE (20:19)
[2017-07-16] MEDS ORDERED: guaiFENesin/CODEINE 10 ML UNIT-DOSE CUPS PO ONE (22:40)
[2017-07-16] MEDS ORDERED: guaiFENesin/CODEINE 5 ML UNIT-DOSE CUPS PO ONE (22:40)
--- NOTE | 2017-07-17 10:30 | EKG ---
Test Reason : Blood Pressure : / mmHG Vent. Rate : 092 BPM Atrial Rate : 092 BPM P-R Int : 170 ms QRS Dur : 082 ms QT Int : 356 ms P-R-T Axes : 029 -05 001 degrees QTc Int : 440 ms NORMAL SINUS RHYTHM MINIMAL VOLTAGE CRITERIA FOR LVH, MAY BE NORMAL VARIANT BORDERLINE ECG WHEN COMPARED WITH ECG OF 06-MAY-2017 22:25, NO SIGNIFICANT CHANGE WAS FOUND Confirmed by SYLVESTER ANDERSON MD ([id number]) on 07/17/2017 10:29:57 AM Referred By: Confirmed By:SYLVESTER ANDERSON MD
== END 2017-07-16 22:52 | disposition home or self-care (01) ==
LOC: JER 17:06
PROC: 3E0F7GC Introduction of Other Therapeutic Substance into Respiratory Tract, Via Natural or Artificial Opening (ICD-10-PCS; principal; 2017-07-16)
DX: J45.909 Unspecified asthma, uncomplicated (principal); I10 Essential (primary) hypertension
CPT/HCPCS: 71046-TC; 84703; 93005; 93010; 94640; 99282-25

== ENCOUNTER 2017-12-23 20:40 | Emergency (ER) | payer SELFPAY ==
[2017-12-23 20:46] VITALS: BP 150/84; PULSE 73; TEMP 97.9; BMI 50.1
--- NOTE | 2017-12-23 21:04 | PDOC ---
History of Present Illness - General Chief Complaint: Cold Symptoms Stated Complaint: FEVER, COUGH Time Seen by Provider: 12/23/17 20:56 History Source: Patient Exam Limitations: No Limitations - History of Present Illness Initial Comments: 12/23/17 21:26 Best Contact: PCP: tomasz Pmhx:HTN, meningitis in 1998 Pshx: Left digit ORIF Allergies: Penicillin/unknown reaction last given in [facility] 28 years ago FH:0 Social Hx: Cigarettes/ 0 Alcohol/ 0 Drugs/0 LMP:12/01/2017 47-year-old female presents to the emergency department complaining of a persistent nonproductive cough 3 days with a low-grade fever of 100.0 taken at home without headache, dizziness, lightheadedness, chills, nausea/vomiting, facial pains, neck pain/stiffness, back pains, chest pain, shortness of breath, abdominal pains, flank pains, urinary symptoms. Patient denies taking any over- the-counter medication. Patient states she ran out of albuterol solution for her nebulizer treatment at home., asthma/neg hx of intubation/recent admission Past History - Past Medical History Allergies/Adverse Reactions: Allergies Allergy/AdvReac Type Severity Reaction Status Date / Time Penicillins Allergy Unknown Verified 12/23/17 20:46 Fish Containing Products Allergy Verified 12/23/17 20:46 fish derived Allergy Itching Verified 12/23/17 20:46 RICARDO Inhibitors AdvReac Verified 12/23/17 20:46 Iodinated Contrast- Oral and AdvReac Verified 12/23/17 20:46 IV Dye Home Medications: Ambulatory Orders Amlodipine Besylate [Norvasc -] 2.5 mg PO DAILY 05/06/17 Esomeprazole Mag Trihydrate [NexIUM for SUSP] 40 mg PO DAILY 05/06/17 Azithromycin [Zithromax -] 250 mg PO UTDICT #6 tab 12/23/17 Anemia: Yes Asthma: No COPD: No GI Disorders: Yes (ACID REFLUX) HTN: Yes Psychiatric Problems: Yes (ANXIETY.) - Immunization History Immunization Up to Date: Yes - Suicide/Smoking/Psychosocial Hx Smoking Status: No Smoking History: Never smoked Have you smoked in the past 12 months: No Number of Cigarettes Smoked Daily: 0 If you are a former smoker, when did you quit?: 2 YRS Hx Alcohol Use: No Drug/Substance Use Hx: No Substance Use Type: None Respiratory Specific PMHX - Complaint Specific PMHX Angina: No Bronchitis: No Pneumonia: No Pulmonary Embolus: No TB (Tuberculosis): No Review of Systems - Review of Systems Able to Perform ROS?: Yes Comments:: 12/23/17 21:16 CONSTITUTIONAL: +fever/ tmax 100.0 Absent: chills, diaphoresis, generalized weakness, malaise, loss of appetite HEENT: Absent: rhinorrhea, nasal congestion, throat pain, throat swelling, difficulty swallowing, mouth swelling, ear pain, eye pain, visual Changes CARDIOVASCULAR: Absent: chest pain, loss of consciousness, palpitations, irregular heart rate, peripheral edema RESPIRATORY: +cough Absent: shortness of breath, dyspnea with exertion, orthopnea, wheezing, stridor, hemoptysis GASTROINTESTINAL: Absent: abdominal pain, abdominal distension, nausea, vomiting, diarrhea, constipation, melena, hematochezia GENITOURINARY: Absent: dysuria, frequency, urgency, hesitancy, hematuria, flank pain, genital pain MUSCULOSKELETAL: Absent: myalgia, arthralgia, joint swelling SKIN: Absent: rash, itching, pallor HEMATOLOGIC/IMMUNOLOGIC: Absent: easy bleeding, easy bruising, lymphadenopathy, frequent infections ENDOCRINE: Absent: unexplained weight gain, unexplained weight loss, heat intolerance, cold intolerance NEUROLOGIC: Absent: headache, focal weakness or paresthesias, dizziness, unsteady gait, seizure, mental status changes, bladder or bowel incontinence PSYCHIATRIC: Absent: anxiety, depression, suicidal or homicidal ideation, hallucinations. Is the patient limited Kiswahili proficient: No *Physical Exam - Vital Signs Last Vital Signs Temp Pulse Resp BP Pulse Ox 97.9 F 73 16 150/84 100 12/23/17 20:44 12/23/17 20:44 12/23/17 20:44 12/23/17 20:44 12/23/17 20:44 - Physical Exam Comments: 12/23/17 21:16 GENERAL: Well developed, well nourished. Awake and alert. No acute distress. HEENT: Normocephalic, atraumatic. PERRLA, EOMI. No conjunctival pallor. Sclera are non- icteric. Moist mucous membranes. Oropharynx is clear. NECK: Supple. Full ROM. No JVD. Carotid pulses 2+ and symmetric, without bruits. No thyromegaly. No lymphadenopathy. CARDIOVASCULAR: Regular rate and rhythm. No murmurs, rubs, or gallops. Distal pulses are 2+ and symmetric. PULMONARY: No evidence of respiratory distress. Lungs clear to auscultation bilaterally. No wheezing, rales or rhonchi. ABDOMINAL: Soft. Non-tender. Non-distended. No rebound or guarding. No organomegaly. Normoactive bowel sounds. MUSCULOSKELETAL Normal range of motion at all joints. No bony deformities or tenderness. No CVA tenderness. EXTREMITIES: No cyanosis. No clubbing. No edema. No calf tenderness. SKIN: Warm and dry. Normal capillary refill. No rashes. No jaundice. NEUROLOGICAL: Alert, awake, appropriate. Cranial nerves 2-12 intact. No deficits to light touch and temperature in face, upper extremities and lower extremities. No motor deficits in the in face, upper extremities and lower extremities. Normoreflexic in the upper and lower extremities. Normal speech. Toes are down- going bilaterally. Gait is normal without ataxia. PSYCHIATRIC: Cooperative. Good eye contact. Appropriate mood and affect. *DC/Admit/Observation/Transfer Diagnosis at time of Disposition: Medication refill Acute bronchitis Qualifiers: Bronchitis organism: unspecified organism Qualified Code(s): J20.9 - Acute bronchitis, unspecified - Discharge Dispostion Disposition: HOME Condition at time of disposition: Stable Decision to Admit order: No - Prescriptions Prescriptions: Azithromycin [Zithromax -] 250 mg PO UTDICT #6 tab - Referrals Referrals: Britney Wang MD [Primary Care Provider] - - Patient Instructions Printed Discharge Instructions: DI for Acute Bronchitis Additional Instructions: Z-Antonio as prescribed Increase fluids Follow up with your doctor within 48 hours Return back to the ER for severe/persistent or worsening symptoms - Post Discharge Activity
== END 2017-12-23 21:41 | disposition home or self-care (01) ==
LOC: JERFT 20:40
DX: J20.9 Acute bronchitis, unspecified (principal); Z76.0 Encounter for issue of repeat prescription; I10 Essential (primary) hypertension; K21.9 Gastro-esophageal reflux disease without esophagitis; F41.9 Anxiety disorder, unspecified; Z86.69 Personal history of other diseases of the nervous system and sense organs; Z88.0 Allergy status to penicillin; Z88.8 Allergy status to other drugs, medicaments and biological substances; Z91.018 Allergy to other foods
CPT/HCPCS: 71046-TC-FY; 99281-25

== ENCOUNTER 2018-06-04 15:26 | Emergency (ER) | payer BC ==
--- NOTE | 2018-06-04 15:35 | PDOC ---
Rapid Medical Evaluation Chief Complaint: Pain, Acute Time Seen by Provider: 06/04/18 15:29 Medical Evaluation: Allergies Allergy/AdvReac Type Severity Reaction Status Date / Time Penicillins Allergy Unknown Verified 06/04/18 15:29 Fish Containing Products Allergy Verified 06/04/18 15:29 fish derived Allergy Itching Verified 06/04/18 15:29 RICARDO Inhibitors AdvReac Verified 06/04/18 15:29 Iodinated Contrast- Oral and AdvReac Verified 06/04/18 15:29 IV Dye 06/04/18 15:29 I have performed a brief in-person evaluation of this patient. The patient presents with a chief complaint of: left leg / back pain x 1 week. Tried all the OTC/ home remedies with no resolve. denies recent exercise changes / trauma. States also has swollen neck glands on and off x 2 years. Pertinent physical exam findings: walks with slight limp , I have ordered the following: nothing The patient will proceed to the ED for further evaluation. Discharge Disposition - Discharge Dispostion Last Admission D/C Date: 04/15/16 - Referrals Referrals: Britney Wang MD [Primary Care Provider] - - Patient Instructions - Post Discharge Activity
[2018-06-04 15:37] VITALS: BP 155/83; PULSE 99; TEMP 98.8; BMI 54.1
--- NOTE | 2018-06-04 16:21 | PDOC ---
History of Present Illness - General Chief Complaint: Pain, Acute Stated Complaint: PAIN Time Seen by Provider: 06/04/18 15:29 - History of Present Illness Initial Comments: 06/04/18 16:18 47-year-old female with 2 weeks of atraumatic left leg and lower back pain increasing over the last 7 days. No loss of bowel or bladder function or saddle paresthesias. No systemic symptoms. Past History - Past Medical History Allergies/Adverse Reactions: Allergies Allergy/AdvReac Type Severity Reaction Status Date / Time Penicillins Allergy Unknown Verified 06/04/18 15:29 Fish Containing Products Allergy Verified 06/04/18 15:29 fish derived Allergy Itching Verified 06/04/18 15:29 RICARDO Inhibitors AdvReac Verified 06/04/18 15:29 Iodinated Contrast- Oral and AdvReac Verified 06/04/18 15:29 IV Dye Home Medications: Ambulatory Orders Amlodipine Besylate [Norvasc -] 2.5 mg PO DAILY 05/06/17 Esomeprazole Mag Trihydrate [NexIUM for SUSP] 40 mg PO DAILY 05/06/17 Cyclobenzaprine HCl [Flexeril 10 mg] 10 mg PO HS PRN #10 tablet 06/04/18 Methylprednisolone [Medrol Dose Antonio] 4 mg PO ASDIR #21 tablet 06/04/18 Anemia: Yes Asthma: No COPD: No GI Disorders: Yes (ACID REFLUX) HTN: Yes Psychiatric Problems: Yes (ANXIETY.) - Immunization History Immunization Up to Date: Yes - Suicide/Smoking/Psychosocial Hx Smoking Status: No Smoking History: Current some day smoker Have you smoked in the past 12 months: No Number of Cigarettes Smoked Daily: 2 If you are a former smoker, when did you quit?: 2 YRS Information on smoking cessation initiated: No Hx Alcohol Use: No Drug/Substance Use Hx: No Substance Use Type: None Review of Systems - Review of Systems Constitutional: No: Fever Musculoskeletal: Yes: Back Pain *Physical Exam - Vital Signs Last Vital Signs Temp Pulse Resp BP Pulse Ox 98.8 F 99 H 20 155/83 100 06/04/18 15:30 06/04/18 15:30 06/04/18 15:30 06/04/18 15:30 06/04/18 15:30 - Physical Exam Comments: 06/04/18 16:19 Lumbar spine skin color and temperature are normal. Range of motion is decreased secondary to pain there is no tenderness about the midline of the lumbar spine or paralumbar musculature there is mild spasm on the left. Tenderness about the left.. periiformis 5 out of 5 strength in bilateral lower extremities with positive straight leg raise test on the left negative on the right no gross sensorimotor deficits thighs and calves are soft and nontender. She's neurovascularly intact. Moderate Sedation - Procedure Monitoring Vital Signs: Procedure Monitoring Vital Signs Temperature 98.8 F 06/04/18 15:30 Pulse Rate 99 H 06/04/18 15:30 Respiratory Rate 20 06/04/18 15:30 Blood Pressure 155/83 06/04/18 15:30 O2 Sat by Pulse Oximetry (%) 100 06/04/18 15:30 *DC/Admit/Observation/Transfer Diagnosis at time of Disposition: Lumbar radiculopathy - Discharge Dispostion Disposition: HOME Condition at time of disposition: Stable Decision to Admit order: No - Referrals Referrals: Britney Wang MD [Primary Care Provider] - Job Waters MD [Staff Physician] - - Patient Instructions Printed Discharge Instructions: Lumbar Radiculopathy, DI for Lumbar Radiculopathy Additional Instructions: Please take the medication as directed. Return to the emergency room should symptoms worsen or go unresolved. Please follow-up with spine surgery in 2-3 days and return to the emergency room should symptoms worsen or go unresolved. - Post Discharge Activity
== END 2018-06-04 16:29 | disposition home or self-care (01) ==
LOC: JER 15:26 → JERFT 15:26
DX: M54.16 Radiculopathy, lumbar region (principal); F17.210 Nicotine dependence, cigarettes, uncomplicated; F41.9 Anxiety disorder, unspecified; K21.9 Gastro-esophageal reflux disease without esophagitis; I10 Essential (primary) hypertension
CPT/HCPCS: 99281-25

== ENCOUNTER 2018-12-07 14:58 | Emergency (ER) | payer BC | END 2018-12-07 16:05 | disposition home or self-care (01) | LOC: JERFT 14:58 ==

== ENCOUNTER 2018-12-16 18:32 | Emergency (ER) | payer BC | END 2018-12-16 19:56 | disposition home or self-care (01) | LOC: JERFT 18:32 ==

== ENCOUNTER 2019-05-21 15:10 | Observation (INO) | payer BC ==
--- NOTE | 2019-05-21 15:22 | PDOC ---
Rapid Medical Evaluation Time Seen by Provider: 05/21/19 15:18 Medical Evaluation: Allergies Allergy/AdvReac Type Severity Reaction Status Date / Time Penicillins Allergy Unknown Verified 12/16/18 18:43 Fish Containing Products Allergy Verified 12/16/18 18:43 fish derived Allergy Itching Verified 12/16/18 18:43 RICARDO Inhibitors AdvReac Verified 12/16/18 18:43 Iodinated Contrast Media AdvReac Verified 12/16/18 18:43 05/21/19 15:18 I have performed a brief in-person evaluation of this patient. The patient presents with a chief complaint of: chest pain Pertinent physical exam findings:stable and in NAD, non-focal I have ordered the following:labs The patient will proceed to the ED for further evaluation.
[2019-05-21 15:44] LABS: BASO % 1.2 % (0-2.0); EOS % 4.7 % (0-4.5); HEMATOCRIT 37.7 % (32.4-45.2); HEMOGLOBIN 12.3 GM/dL (10.7-15.3); LYMPH % 31.3 % (8-40); MCH 27.3 pg (25.7-33.7); MCHC 32.5 g/dl (32.0-36.0); MEAN PLT VOLUME 9.4 fl (7.5-11.1); MONO % 8.8 % (3.8-10.2); PLATELET COUNT 321 K/MM3 (134-434); RBC 4.49 M/mm3 (3.60-5.2); RDW 15.8 % (11.6-15.6); WHITE BLOOD COUNT 5.6 K/mm3 (4.0-10.0)
[2019-05-21 15:58] LABS: INR 1.08 (0.83-1.09); PROTHROMBIN TIME (PATIENT) 12.8 SEC (9.7-13.0)
[2019-05-21 16:00] LABS: ACTIVATED PTT 31.6 SECONDS (25.2-36.5)
--- NOTE | 2019-05-21 16:05 | PDOC ---
History of Present Illness - General Chief Complaint: Chest Pain Stated Complaint: CHEST PAIN Time Seen by Provider: 05/21/19 15:18 History Source: Patient Exam Limitations: No Limitations - History of Present Illness Initial Comments: 05/21/19 16:23 Patient is a 48 year old female w/PMH of HTN, KWAKU, anemia, angioedema, GERD and morbid obesity BIBEMS with sudden onset chest pain 2 hours ago. 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 Chest pain was dull, pulsating, did not radiate anywhere. She endorses associated R hand tingling, mild vertigo, and sensation that "her mouth is heavy". Pt had the school nurse take her BP which was "160s/100s" so they called the ambulance to bring her to the ED. She states that she has no cardiac history, does not have a weaver hand. Had a similar episode one year ago but reports that she was just given medication and sent home. Pt denies any recent travel or immobilization. Pt last saw her PCP one month ago and denies any changes to her medications. She takes 2.5mg amlodipine daily for HTN and reports compliance with meds. She occasionally takes a baby asa. PCP: Dr. Britney Hayden 05/21/19 16:28 05/21/19 16:38 05/21/19 16:45 Is this a multiple visit Asthma Patient?: No Timing/Duration: 1-3 hours Past History - Past Medical History Allergies/Adverse Reactions: Allergies Allergy/AdvReac Type Severity Reaction Status Date / Time Penicillins Allergy Unknown Verified 05/21/19 15:21 Fish Containing Products Allergy Verified 05/21/19 15:21 fish derived Allergy Itching Verified 05/21/19 15:21 RICARDO Inhibitors AdvReac Verified 05/21/19 15:21 Iodinated Contrast Media AdvReac Verified 05/21/19 15:21 Home Medications: Ambulatory Orders Amlodipine Besylate [Norvasc -] 2.5 mg PO DAILY 05/06/17 Esomeprazole Mag Trihydrate [NexIUM for SUSP] 40 mg PO DAILY 05/06/17 Azithromycin [Zithromax 250mg Tablets -] 250 mg PO UTDICT #6 tab 12/16/18 Anemia: Yes Asthma: No COPD: No GI Disorders: Yes (ACID REFLUX) HTN: Yes Psychiatric Problems: Yes (ANXIETY.) Other medical history: angio edema - Immunization History Immunization Up to Date: Yes - Psycho Social/Smoking Cessation Hx Smoking Status: No Smoking History: Never smoked Have you smoked in the past 12 months: No Number of Cigarettes Smoked Daily: 2 If you are a former smoker, when did you quit?: 2 YRS Hx Alcohol Use: No (occasionally) Drug/Substance Use Hx: No Substance Use Type: None Review of Systems - Review of Systems Able to Perform ROS?: Yes Constitutional: Yes: See HPI. No: Chills, Diaphoresis HEENTM: No: Symptoms Reported, See HPI, Eye Pain, Blurred Vision, Tearing, Recent change in vision, Double Vision, Cataracts, Ear Pain, Ocular Prothesis, Ear Discharge, Nose Pain, Nose Congestion, Tinnitus, Nose Bleeding, Hearing Loss , Throat Pain, Throat Swelling, Mouth Pain, Dental Problems, Difficulty Swallowing, Mouth Swelling, Other Respiratory: Yes: Shortness of Breath. No: Orthopnea, SOB with Exertion, SOB at Rest, Stridor, Wheezing, Productive cough, Hemoptysis Cardiac (ROS): Yes: Chest Pain, Palpitations, Chest Tightness. No: Edema, Irregular Heart Rate, Lightheadedness, Syncope ABD/GI: No: Symptoms Reported, See HPI, Abdominal Distended, Abd. Pain w/ defecation, Blood Streaked Bowels, Constipated, Diarrhea, Difficulty Swallowing , Nausea, Poor Appetite, Poor Fluid Intake, Rectal Bleeding, Vomiting, Indigestion, Abdominal cramping, Tarry Stools, Other : No: Symptoms Reported, See HPI, Burning, Dysuria, Discharge, Frequency, Flank Pain, Hematuria, Incontinence, Pain, Urgency, Testicular Mass, Testicular Swelling, Lesions, Testicular Pain, Other Musculoskeletal: Yes: Muscle Weakness Neurological: Yes: Numbness, Dizziness. No: Symptoms reported, See HPI, Headache, Paresthesia, Pre-Existing Deficit, Seizure, Tingling, Tremors, Weakness, Unsteady Gait, Ataxia, Other *Physical Exam - Vital Signs Last Vital Signs Temp Pulse Resp BP Pulse Ox 98.1 F 105 H 14 166/97 98 05/21/19 15:18 05/21/19 15:18 05/21/19 15:18 05/21/19 15:18 05/21/19 15:18 - Physical Exam General Appearance: Yes: Nourished, Appropriately Dressed, Obese. No: Apparent Distress, Disheveled, Mild Distress, Moderate Distress, Severe Distress, Alcohol on Breath, Intoxicated, Cachetic, Thin, Other HEENT: positive: EOMI, МАРИНА, Normal Voice Neck: positive: Trachea midline, Normal Thyroid, Supple Respiratory/Chest: positive: Lungs Clear, Normal Breath Sounds. negative: Chest Tender, Respiratory Distress, Accessory Muscle Use, Crackles, Wheezing Cardiovascular: positive: S1, S2, Tachycardia. negative: Edema, JVD, Murmur Vascular Pulses: Dorsalis-Pedis (R): 2+, Doralis-Pedis (L): 2+ Extremity: negative: Pedal Edema, Swelling, Calf Tenderness Neurologic: positive: museum attendant II-XII NML intact, Fully Oriented, Alert, Normal Mood/ Affect, Normal Response, Motor Strength 11/04 ED Treatment Course - LABORATORY CBC & Chemistry Diagram: 05/21/19 15:30 05/21/19 15:30 - ADDITIONAL ORDERS Additional order review: Laboratory Results 05/21/19 15:30 PT with INR 12.80 INR 1.08 PTT (Actin FS) 31.6 05/21/19 15:30 RBC 4.49 MCV 84.0 MCHC 32.5 RDW 15.8 H MPV 9.4 Neutrophils % 54.0 Lymphocytes % 31.3 Monocytes % 8.8 Eosinophils % 4.7 H Basophils % 1.2 Medical Decision Making - Medical Decision Making 05/21/19 16:41 HEART Score: 4 Wells' Criteria: 1.5 >> EKG, trop, CBC, CMP >> Give 162mg asa 05/21/19 17:02 CBC and BMP wnl Trop neg x1 05/21/19 18:04 05/21/19 18:36 Plan to admit on tele obs Admitting physician: on-call romario, pending call-back 05/21/19 18:47
[2019-05-21 16:20] LABS: ALBUMIN 3.4 g/dl (3.4-5.0); ALK PHOS 106 U/L (45-117); ANION GAP 5 MMOL/L (8-16); BILIRUBIN,TOTAL 0.3 mg/dL (0.2-1); BLOOD UREA NITROGEN 10.8 mg/dL (7-18); CALCIUM 8.8 mg/dL (8.5-10.1); CHLORIDE 108 mmol/L (98-107); CO2 27 mmol/L (21-32); CREATININE 0.9 mg/dL (0.55-1.3); GLUCOSE,RANDOM 132 mg/dL (74-106); MAGNESIUM 2.2 mg/dL (1.8-2.4); POTASSIUM 3.8 mmol/L (3.5-5.1); SGOT/AST 17 U/L (15-37); SGPT/ALT 22 U/L (13-61); SODIUM 140 mmol/L (136-145); TOT PROT 7.4 g/dl (6.4-8.2)
[2019-05-21] MEDS ORDERED: ASPIRIN COATED 81 MG TABLET.EC PO ONE (16:31)
[2019-05-21] MEDS ORDERED: ASPIRIN 81 MG CHEWABLE TABLETS ONE (17:51)
--- NOTE | 2019-05-21 18:11 | PDOC ---
Documentation entered by Tristen Negro SCRIBE, acting as scribe for Leilani Christine MD. Leilani Christine MD: This documentation has been prepared by the Marky greene Daniel, SCRIBE, under my direction and personally reviewed by me in its entirety. I confirm that the documentation accurately reflects all work, treatment, procedures, and medical decision making performed by me. Attending Attestation - Resident Resident Name: Raquel Dobbins - ED Attending Attestation I have performed the following: I have examined & evaluated the patient, The case was reviewed & discussed with the resident, I agree w/resident's findings & plan, Exceptions are as noted - HPI HPI: 05/21/19 16:17 The patient is a 48 year old female with a past medical history of HTN, obstructive sleep apnea, and obesity here today for evaluation of chest pain. The patient reports that she had a sudden onset of pressure like, midsternal chest pain with associated heart racing, shortness of breath, right hand tingling, and mouth numbness a few hours prior to arrival. 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 She also notes occasional lower extremity swelling. Patient denies headache, lightheadedness. Denies fever, chills. Denies nausea, vomiting, diarrhea, abdominal pain. Allergies: iodinated contrast, RICARDO inhibitors, penicillins, fish containing products, fish derived - Physicial Exam PE: 05/21/19 18:10 Obese 48-year-old female developed chest pressure today associated with some shortness of breath. Head normocephalic atraumatic Neck no JVD no bruits, supple Lungs are clear to auscultation bilaterally CVS regular rate and rhythm S1-S2 Abdomen protuberant nontender abdomen Skin warm and dry extremities there is no pitting edema some mild pedal edema Neuro alert and oriented x3 moving all her extremities Psych appropriate - Medical Decision Making 05/21/19 18:11 D-dimer 975 05/21/19 18:13 Patient did receive a full complement of aspirin CBC chemistries and coags are unremarkable Patient has a history of angioedema associated with contrast Plan will be to admit to OBS telemetry 05/21/19 18:24
--- NOTE | 2019-05-21 20:06 | HP ---
Admitting History and Physical - Primary Care Physician PCP: - Admission Chief Complaint: Chest pain with SOB History of Present Illness: 48 year old female with PMHx of HTN, Anemia,KWAKU, Morbid obesity, GERD, ( past h/ of angioedema from contrast allergies), arrived to emergency room via EMS due to acute chest pain and SOB. Patient was at work when suddenly starting experience chest tightness, mid-sternal, CP was dull pulsating/pressure did not radiate, also with palpitations, dizziness, lock jaw, and SOB. BP was checked at work "160/100. Patient denies past history cardiac history. Patient denies N/ V, fever chills. No recent travel. History Source: Patient Limitations to Obtaining History: No Limitations - Past Medical History Cardiovascular: Yes: HTN Pulmonary: Yes: Sleep Apnea, Other (KWAKU, Morbid obesity) Gastrointestinal: Yes: GERD ...LMP: 01/10/16 Heme/Onc: Yes: Anemia Psych: Yes: Anxiety - Past Surgical History Past Surgical History: Yes: None - Smoking History Smoking history: Never smoked Have you smoked in the past 12 months: No Aproximately how many cigarettes per day: 5 If you are a former smoker, when did you quit?: 2 YRS - Alcohol/Substance Use Hx Alcohol Use: No (occasionally) History of Substance Use: reports: None - Social History ADL: Independent History of Recent Travel: No Home Medications - Allergies Allergies/Adverse Reactions: Allergies Allergy/AdvReac Type Severity Reaction Status Date / Time Penicillins Allergy Unknown Verified 05/21/19 15:21 Fish Containing Products Allergy Verified 05/21/19 15:21 fish derived Allergy Itching Verified 05/21/19 15:21 RICARDO Inhibitors AdvReac Verified 05/21/19 15:21 Iodinated Contrast Media AdvReac Verified 05/21/19 15:21 - Home Medications Home Medications: Ambulatory Orders Amlodipine Besylate [Norvasc -] 2.5 mg PO DAILY 05/06/17 Family Medical History Family Hx Cancer: Father (colon ca ) Family Hx Cardiac Disorders: Father (PR) Review of Systems - Review of Systems Constitutional: reports: No Symptoms Eyes: reports: No Symptoms HENT: reports: No Symptoms Neck: reports: No Symptoms Cardiovascular: reports: Chest Pain, Palpitations, Shortness of Breath Respiratory: reports: No Symptoms Gastrointestinal: reports: No Symptoms Genitourinary: reports: No Symptoms Musculoskeletal: reports: No Symptoms Integumentary: reports: No Symptoms Neurological: reports: Dizziness Endocrine: reports: No Symptoms Hematology/Lymphatic: reports: No Symptoms Psychiatric: reports: No Symptoms Physical Examination Vital Signs: Vital Signs Temperature 97.7 F 05/21/19 17:21 Pulse Rate 83 05/21/19 17:21 Respiratory Rate 12 05/21/19 17:21 Blood Pressure 141/92 05/21/19 17:21 O2 Sat by Pulse Oximetry (%) 100 05/21/19 17:21 Constitutional: Yes: Calm, Obese Eyes: Yes: Conjunctiva Clear, EOM Intact HENT: Yes: Atraumatic, Normocephalic Neck: Yes: Supple, Trachea Midline Cardiovascular: Yes: Regular Rate and Rhythm Respiratory: Yes: Regular, CTA Bilaterally Gastrointestinal: Yes: Normal Bowel Sounds, Soft Musculoskeletal: Yes: WNL Extremities: Yes: WNL Edema: Yes Edema: LLE: 1+, RLE: 1+ Peripheral Pulses WNL: Yes Neurological: Yes: Alert, Oriented Labs: CBC, BMP 05/21/19 15:30 05/21/19 15:30 Imaging - Results EKG: Report Reviewed (NSR @ 79, no s/t changes) Other: Report Reviewed (D- Dimer: 795) Problem List - Problems (1) Atypical chest pain Code(s): R07.89 - OTHER CHEST PAIN (2) Hypertension Code(s): I10 - ESSENTIAL (PRIMARY) HYPERTENSION Qualifiers: Hypertension type: essential hypertension Qualified Code(s): I10 - Essential (primary) hypertension (3) GERD (gastroesophageal reflux disease) Code(s): K21.9 - GASTRO-ESOPHAGEAL REFLUX DISEASE WITHOUT ESOPHAGITIS (4) KWAKU (obstructive sleep apnea) Code(s): G47.33 - OBSTRUCTIVE SLEEP APNEA (ADULT) (PEDIATRIC) (5) Anemia Code(s): D64.9 - ANEMIA, UNSPECIFIED (6) Anxiety Code(s): F41.9 - ANXIETY DISORDER, UNSPECIFIED (7) Morbid obesity Code(s): E66.01 - MORBID (SEVERE) OBESITY DUE TO EXCESS CALORIES (8) History of angioedema Code(s): Z87.898 - PERSONAL HISTORY OF OTHER SPECIFIED CONDITIONS Assessment/Plan 48 year old female with PMHx of HTN, Anemia,KWAKU, Morbid obesity, GERD, ( past h/ of angioedema from contrast allergies), arrived to emergency room via EMS due to acute chest pain and SOB. # Atypical Chest pain r/o ACS vs DVT tele obs cardiac monitoring - EkG: sinus rhythm - trop: negative, follow up repeat #2 - Dupplex B/L LE: no DVT noted - unable to do CTA ( h/o angioedema contrast allergies) - ED - given ASA 162mg - continue with o2 via NC PRN - follow up cardiology in AM # Hypertension -start Norvasc 2.5mg po daily # Anemia - stable - monitor H/H # KWAKU - monitor Spo2 as needed - O2 via NC PRN # GERD -pepcid 20 mg daily FEN Fluids: PO intake adequate Electrolytes: replete as indicated Nutrition: low sodium DVT prophylaxis: early, ambulation, SCD Dispo: Full code, Tele obs Visit type - Emergency Visit Emergency Visit: Yes ED Registration Date: 05/21/19 Care time: The patient presented to the Emergency Department on the above date and was hospitalized for further evaluation of their emergent condition. - New Patient This patient is new to me today: Yes Date on this admission: 05/21/19 - Critical Care Critical Care patient: No
[2019-05-21] MEDS ORDERED: ACETAMINOPHEN 325 MG TABLET (FP) PO PRN (21:10)
[2019-05-21] MEDS ORDERED: ACETAMINOPHEN 325 MG TABLET (FP) ONE (23:21)
[2019-05-22 07:31] LABS: HEMATOCRIT 35.3 % (32.4-45.2); HEMOGLOBIN 11.8 GM/dL (10.7-15.3); MCH 27.9 pg (25.7-33.7); MCHC 33.5 g/dl (32.0-36.0); MEAN CELL VOLUME 83.3 fl (80-96); PLATELET COUNT 294 K/MM3 (134-434); RBC 4.24 M/mm3 (3.60-5.2); RDW 16.3 % (11.6-15.6); WHITE BLOOD COUNT 4.9 K/mm3 (4.0-10.0)
[2019-05-22 07:55] LABS: BLOOD UREA NITROGEN 10.4 mg/dL (7-18); CALCIUM 8.4 mg/dL (8.5-10.1); CREATININE 0.6 mg/dL (0.55-1.3)
[2019-05-22] MEDS: amLODIPine BESYLATE 2.5 MG TABLET (FP) PO SCH (09:22)
[2019-05-22] MEDS ORDERED: FAMOTIDINE 20 MG TABLET PO SCH (10:00)
--- NOTE | 2019-05-22 10:23 | EKG ---
Test Reason : Blood Pressure : / mmHG Vent. Rate : 102 BPM Atrial Rate : 102 BPM P-R Int : 180 ms QRS Dur : 082 ms QT Int : 334 ms P-R-T Axes : 050 -01 026 degrees QTc Int : 435 ms SINUS TACHYCARDIA POSSIBLE LEFT ATRIAL ENLARGEMENT POSSIBLE ANTERIOR INFARCT , AGE UNDETERMINED ABNORMAL ECG WHEN COMPARED WITH ECG OF 16-JUL-2017 22:31, NO SIGNIFICANT CHANGE WAS FOUND Confirmed by LIEN BEAR, DACIA ([id number]) on 05/22/2019 10:22:51 AM Referred By: Confirmed By:DACIA EMMANUEL MD
--- NOTE | 2019-05-22 10:35 | EKG ---
Test Reason : Blood Pressure : / mmHG Vent. Rate : 079 BPM Atrial Rate : 079 BPM P-R Int : 172 ms QRS Dur : 084 ms QT Int : 376 ms P-R-T Axes : 027 -08 008 degrees QTc Int : 431 ms NORMAL SINUS RHYTHM NORMAL ECG WHEN COMPARED WITH ECG OF 21-MAY-2019 15:13, NO SIGNIFICANT CHANGE WAS FOUND Confirmed by DACIA EMMANUEL MD ([id number]) on 05/22/2019 10:34:39 AM Referred By: Confirmed By:DACIA EMMANUEL MD
--- NOTE | 2019-05-22 11:10 | PN ---
Progress Note (short form) - Note Progress Note: Events noted felt tightness in chest SOB+ She was getting a panic attack as well - stress at home Vital Signs - 24 hr 05/21/19 05/21/19 05/21/19 15:18 15:30 17:21 Temperature 98.1 F 97.7 F Pulse Rate 105 H Pulse Rate [ Apical] Pulse Rate [ 83 Left Radial] Respiratory 14 12 Rate Blood Pressure 166/97 Blood Pressure 141/92 [Right Arm] O2 Sat by Pulse 98 100 100 Oximetry (%) 05/22/19 05/22/19 03:25 09:23 Temperature 97.7 F Pulse Rate Pulse Rate [ 82 Apical] Pulse Rate [ 85 Left Radial] Respiratory 18 18 Rate Blood Pressure Blood Pressure 142/76 135/71 [Right Arm] O2 Sat by Pulse 99 Oximetry (%) Current Medications Generic Name Dose Route Start Last Admin Trade Name Freq PRN Reason Stop Dose Admin Acetaminophen 650 mg 05/21/19 21:10 05/21/19 23:25 Tylenol - PO 650 mg Q6H PRN Administration PAIN LEVEL 1-5 Amlodipine Besylate 2.5 mg 05/22/19 10:00 05/22/19 09:22 Norvasc - PO 2.5 mg DAILY STANISLAW Administration Famotidine 20 mg 05/22/19 10:00 05/22/19 09:22 Pepcid - PO 20 mg DAILY STANISLAW Administration Laboratory Results - last 24 hr 05/21/19 05/21/19 05/21/19 15:30 15:30 15:30 WBC 5.6 RBC 4.49 Hgb 12.3 Hct 37.7 MCV 84.0 MCH 27.3 MCHC 32.5 RDW 15.8 H Plt Count 321 MPV 9.4 Absolute Neuts (auto) 3.0 Neutrophils % 54.0 Lymphocytes % 31.3 Monocytes % 8.8 Eosinophils % 4.7 H Basophils % 1.2 Nucleated RBC % 0 PT with INR 12.80 INR 1.08 PTT (Actin FS) 31.6 D-Dimer Sodium 140 Potassium 3.8 Chloride 108 H Carbon Dioxide 27 Anion Gap 5 L BUN 10.8 Creatinine 0.9 Est GFR (CKD-EPI)AfAm 88.25 Est GFR (CKD-EPI)NonAf 76.14 Random Glucose 132 H Calcium 8.8 Magnesium 2.2 Total Bilirubin 0.3 AST 17 ALT 22 Alkaline Phosphatase 106 Creatine Kinase 125 Troponin I < 0.02 Total Protein 7.4 Albumin 3.4 Beta HCG, Quant < 1.0 Urine HCG, Qual 05/21/19 05/21/19 05/22/19 15:30 23:15 01:30 WBC RBC Hgb Hct MCV MCH MCHC RDW Plt Count MPV Absolute Neuts (auto) Neutrophils % Lymphocytes % Monocytes % Eosinophils % Basophils % Nucleated RBC % PT with INR INR PTT (Actin FS) D-Dimer 795 H Sodium Potassium Chloride Carbon Dioxide Anion Gap BUN Creatinine Est GFR (CKD-EPI)AfAm Est GFR (CKD-EPI)NonAf Random Glucose Calcium Magnesium Total Bilirubin AST ALT Alkaline Phosphatase Creatine Kinase Troponin I < 0.02 Total Protein Albumin Beta HCG, Quant Urine HCG, Qual Negative 05/22/19 05/22/19 07:10 07:10 WBC 4.9 RBC 4.24 Hgb 11.8 Hct 35.3 MCV 83.3 MCH 27.9 MCHC 33.5 RDW 16.3 H Plt Count 294 MPV 9.0 Absolute Neuts (auto) Neutrophils % Lymphocytes % Monocytes % Eosinophils % Basophils % Nucleated RBC % PT with INR INR PTT (Actin FS) D-Dimer Sodium 140 Potassium 4.0 Chloride 107 Carbon Dioxide 29 Anion Gap 4 L BUN 10.4 Creatinine 0.6 Est GFR (CKD-EPI)AfAm 125.80 Est GFR (CKD-EPI)NonAf 108.54 Random Glucose 112 H Calcium 8.4 L Magnesium Total Bilirubin AST ALT Alkaline Phosphatase Creatine Kinase Troponin I Total Protein Albumin Beta HCG, Quant Urine HCG, Qual S1 S2 RRR Tenderness at chest wall Lungs clear Abd- soft. Nt No edema Sono-- negative for DVT CXR-- clear EKG-- NSR PLAN cardiac enzymes negative Check Echo D dimer elevated -- low probability for PE check echo - if RV strain then will decide on V/Q scan stress test scheduled for tomorrow spoke with Cardiology Problem List - Problems (1) Costochondritis Code(s): M94.0 - CHONDROCOSTAL JUNCTION SYNDROME [TIETZE] (2) Anxiety Code(s): F41.9 - ANXIETY DISORDER, UNSPECIFIED (3) History of angioedema Code(s): Z87.898 - PERSONAL HISTORY OF OTHER SPECIFIED CONDITIONS (4) Morbid obesity Code(s): E66.01 - MORBID (SEVERE) OBESITY DUE TO EXCESS CALORIES (5) Atypical chest pain Code(s): R07.89 - OTHER CHEST PAIN (6) Hypertension Code(s): I10 - ESSENTIAL (PRIMARY) HYPERTENSION Qualifiers: Hypertension type: essential hypertension Qualified Code(s): I10 - Essential (primary) hypertension
--- NOTE | 2019-05-22 11:13 | CON.CARD ---
Consult Consult Specialty:: Cardiology Referred by:: Medicine Reason for Consultation:: chest pain - History of Present Illness Chief Complaint: chest pain History of Present Illness: 48F h/o HTN, anemia, KWAKU, GERD, obesity p/w chest pain, dyspnea. Was at work, was seated and had substernal chest tightness associated with diaphoresis and dyspnea. lasted about an hour, BP checked at work was 160/100 per patient. No prior cardiac hx, has occasional mild chest tightness that doesn't really bother her. She walks often at work, climbs stairs, has some dyspnea on exertion. History of elevated BP on amlodipine, thinks it was controlled with amlodipine. This morning no chest pain, palps, dizziness, dyspnea did have reoccurence of chest pain last night but not as severe. - Past Medical History Cardio/Vascular: Yes: HTN Pulmonary: Yes: Sleep Apnea, Other (KWAKU, Morbid obesity) Gastrointestinal: Yes: GERD ...LMP: 01/10/16 Infectious Disease: Yes: Other (viral meningitis) Psych: Yes: Anxiety - Past Surgical History Past Surgical History: Yes: None - Alcohol/Substance Use Hx Alcohol Use: No (occasionally) History of Substance Use: reports: None - Smoking History Smoking history: Never smoked Have you smoked in the past 12 months: No Aproximately how many cigarettes per day: 5 If you are a former smoker, when did you quit?: 2 YRS - Social History Usual Living Arrangement: Alone ADL: Independent History of Recent Travel: No Home Medications - Allergies Allergies/Adverse Reactions: Allergies Allergy/AdvReac Type Severity Reaction Status Date / Time Penicillins Allergy Unknown Verified 05/21/19 15:21 Fish Containing Products Allergy Verified 05/21/19 15:21 fish derived Allergy Itching Verified 05/21/19 15:21 IRCARDO Inhibitors AdvReac Verified 05/21/19 15:21 Iodinated Contrast Media AdvReac Verified 05/21/19 15:21 - Home Medications Home Medications: Ambulatory Orders Amlodipine Besylate [Norvasc -] 2.5 mg PO DAILY 05/06/17 Family Medical History Family History: Unremarkable Review of Systems - Review of Systems Constitutional: reports: No Symptoms Eyes: reports: No Symptoms HENT: reports: No Symptoms Neck: reports: No Symptoms Cardiovascular: reports: No Symptoms Respiratory: reports: No Symptoms Gastrointestinal: reports: No Symptoms Genitourinary: reports: No Symptoms Musculoskeletal: reports: No Symptoms Integumentary: reports: No Symptoms Neurological: reports: No Symptoms Endocrine: reports: No Symptoms Hematology/Lymphatic: reports: No Symptoms Psychiatric: reports: No Symptoms Vital Signs: Vital Signs Temperature 97.7 F 05/22/19 03:25 Pulse Rate 82 05/22/19 09:23 Respiratory Rate 18 05/22/19 09:23 Blood Pressure 135/71 05/22/19 09:23 O2 Sat by Pulse Oximetry (%) 99 05/22/19 03:25 Constitutional: Yes: No Distress, Calm Eyes: Yes: Conjunctiva Clear, EOM Intact HENT: Yes: Atraumatic, Normocephalic Neck: Yes: Supple, Trachea Midline Respiratory: Yes: Regular, CTA Bilaterally Gastrointestinal: Yes: Normal Bowel Sounds, Soft Cardiovascular: Yes: Regular Rate and Rhythm JVD: No Heart Sounds: Yes: S1, S2 Musculoskeletal: No: Back Pain Extremities: No: Cold Edema: No Integumentary: No: Jaundice Neurological: Yes: Alert, Oriented Psychiatric: No: Agitated - Other Data Labs, Other Data: CBC, BMP 05/22/19 07:10 05/22/19 07:10 INR, PTT INR 1.08 (0.83-1.09) 05/21/19 15:30 Troponin, BNP 05/21/19 05/21/19 15:30 23:15 Troponin I < 0.02 < 0.02 Troponin, BNP 05/21/19 05/21/19 15:30 23:15 Troponin I < 0.02 < 0.02 Assessment/Plan EKG: sinus, nl intervals, no ischemic changes echo 2013 tds, nl LV/RV function ETT 2013 no ischemia tele: sinus, sinus bradycardia chest pain - EKG no ischemic changes, neg trop x2 - less likely ACS - monitoring on tele - d-dimer elevated, huey lower ext doppler neg for DVT, history less c/w PE - unable to do CTA chest due to contrast allergy - d/w pmd, will check echocardiogram, if no signs of RV strain will evaluate with mibi HTN - cont amlodipine GERD -manage per primary
[2019-05-22] MEDS ORDERED: IBUPROFEN 600 MG TABLET (FP) PO PRN (12:24)
--- NOTE | 2019-05-22 14:14 | ECHO ---
Name: PADMINI JOHNSON Exam:Adult Echocardiogram Study Date: 05/22/2019 11:45 AM Age: 48 yrs Reason For Study: Chest pain Height: 63 in Weight: 286 lb BSA: 2.3 m2 MMode/2D Measurements & Calculations IVSd: 1.3 cm Ao root diam: 2.4 cm LVIDd: 3.8 cm LA dimension: 3.8 cm LVIDs: 2.8 cm ACS: 1.8 cm LVPWd: 1.2 cm EDV(Teich): 63.4 ml LVOT diam: 2.0 cm ESV(Teich): 28.9 ml Doppler Measurements & Calculations MV E max lavelle: 55.8 cm/sec Ao V2 max: 165.3 cm/sec MV A max lavelle: 74.0 cm/sec Ao max P.9 mmHg MV E/A: 0.75 Ao V2 mean: 104.2 cm/sec MV dec time: 0.20 sec Ao mean P.2 mmHg Ao V2 VTI: 33.0 cm COLE(V,D): 2.0 cm2 LV V1 max P.3 mmHg MR max lavelle: 114.0 cm/sec LV V1 max: 103.7 cm/sec MR max P.2 mmHg TR max lavelle: 161.5 cm/sec Lat Peak E' Lavelle: 10.6 cm/sec TR max P.5 mmHg Lat E/e': 5.2 Procedure A two-dimensional transthoracic echocardiogram with color flow and Doppler was performed. The study w as technically difficult with many images being suboptimal in quality. Left Ventricle The left ventricular size, thickness and function are normal. The left ventricular ejection fraction is normal. E/A reversal consistent with but not diagnostic of poor LV compliance. The left ventricular w all motion is normal. Right Ventricle The right ventricle is not well visualized. Atria Normal left and right atrial size and function. Mitral Valve The mitral valve is not well visualized. There is no mitral valve stenosis. There is trace to mild mi tral regurgitation. Tricuspid Valve The tricuspid valve is not well visualized. There is no tricuspid stenosis. There is Trace to mild tr icuspid regurgitation. Right ventricular systolic pressure is normal. Aortic Valve The aortic valve is not well visualized. No hemodynamically significant valvular aortic stenosis. No aortic regurgitation is present. Pulmonic Valve The pulmonic valve is not well visualized. Great Vessels The aortic root is normal size. Pericardium/Pleura There is no pericardial effusion. Interpretation Summary The left ventricular size, thickness and function are normal The left ventricular ejection fraction is normal. The left ventricular wall motion is normal. E/A reversal consistent with but not diagnostic of poor LV compliance There is trace to mild mitral regurgitation. The study was technically difficult with many images being suboptimal in quality. There is Trace to mild tricuspid regurgitation. Right ventricular systolic pressure is normal. MD Jovanny Sidhu 05/22/2019 02:13 PM
[2019-05-22 17:10] VITALS: BMI 52.8
[2019-05-22] MEDS: ZOLPIDEM TARTRATE 5 MG TABLET PO PRN (22:39)
[2019-05-23] MEDS ORDERED: REGADENOSON 0.4 MG/5 ML PRE-FILLED SYRINGE IVPUSH ONE ×2 (11:30→11:45)
--- NOTE | 2019-05-23 11:49 | PN ---
Progress Note (short form) - Note Progress Note: s: no cp sob palps dizzy Current Medications Generic Name Dose Route Start Last Admin Trade Name Freq PRN Reason Stop Dose Admin Acetaminophen 650 mg 05/21/19 21:10 05/21/19 23:25 Tylenol - PO 650 mg Q6H PRN Administration PAIN LEVEL 1-5 Amlodipine Besylate 2.5 mg 05/22/19 10:00 05/22/19 09:22 Norvasc - PO 2.5 mg DAILY STANISLAW Administration Ibuprofen 600 mg 05/22/19 12:24 Motrin - PO Q6H PRN PAIN LEVEL 6-10 Pantoprazole Sodium 40 mg 05/23/19 10:00 Protonix - PO DAILY STANISLAW Zolpidem Tartrate 5 mg 05/22/19 12:24 05/22/19 22:39 Ambien - PO 5 mg HS PRN Administration INSOMNIA Vital Signs Period Temp Pulse Resp BP Sys/M[place]enhall Pulse Ox Last 24 Hr 97.6 F-98.4 F 81-94 18-20 128-148/81-97 96-100 Constitutional: Yes: No Distress, Calm Eyes: Yes: Conjunctiva Clear Respiratory: Yes: Regular, CTA Bilaterally Gastrointestinal: Yes: Normal Bowel Sounds, Soft Cardiovascular: Yes: Regular Rate and Rhythm JVD: No Heart Sounds: Yes: S1, S2 Musculoskeletal: No: Back Pain Extremities: No: Cold Edema: No Integumentary: No: Jaundice Neurological: Yes: Alert, Oriented Psychiatric: No: Agitated CBC, BMP 05/22/19 07:10 05/22/19 07:10 Assessment/Plan EKG: sinus, nl intervals, no ischemic changes echo 2013 tds, nl LV/RV function echo 05/2019: nl lv, no sig valve path, nl rvsp ETT 2013 no ischemia tele: sinus, sinus bradycardia chest pain - EKG no ischemic changes, neg trop x2 - does not seem like ACS - d-dimer elevated, huey lower ext doppler neg for DVT, history less c/w PE - unable to do CTA chest due to contrast allergy. echo shows no signs of rv strain. - if nuclear stress test today is benign then no further cardiac testing needed at this time. HTN - cont amlodipine GERD -manage per primary
[2019-05-23] MEDS: PANTOPRAZOLE 40 MG TABLET (FP) PO SCH (14:07)
--- NOTE | 2019-05-23 15:38 | DS ---
Physical Examination Vital Signs: Vital Signs Temperature 98.8 F 05/23/19 14:57 Pulse Rate 88 05/23/19 14:57 Respiratory Rate 18 05/23/19 14:57 Blood Pressure 135/90 05/23/19 14:57 O2 Sat by Pulse Oximetry (%) 96 05/23/19 08:27 Constitutional: Yes: No Distress, Calm Cardiovascular: Yes: Regular Rate and Rhythm Respiratory: Yes: CTA Bilaterally Gastrointestinal: Yes: Normal Bowel Sounds, Soft, Abdomen, Obese Labs: CBC, BMP 05/22/19 07:10 05/22/19 07:10 Discharge Summary Problems reviewed: Yes Reason For Visit: ATYPICAL CHEST PAIN Current Active Problems Anemia (Acute) Anxiety (Acute) Costochondritis (Acute) GERD (gastroesophageal reflux disease) (Acute) History of angioedema (Acute) Morbid obesity (Acute) KWAKU (obstructive sleep apnea) (Acute) Hospital Course: ADmitted for chest pain Cardiac enzymes negative Echo -- no RV strain D dimer positive, sono legs negative for PE low probability for PE CTA chest not done due to contrast allergy stress test today negative for ischemia Stable for dc home she has chest wall tenderness-- >costochondritis-->recommend warm compresses to chest wall and NSAIDS Condition: Improved - Instructions Disposition: HOME - Home Medications Comprehensive Discharge Medication List: Ambulatory Orders Amlodipine Besylate [Norvasc -] 2.5 mg PO DAILY 05/06/17 Ibuprofen [Motrin -] 600 mg PO Q6H PRN #20 tablet 05/23/19
[2019-05-23] MEDS: ZOLPIDEM TARTRATE 5 MG TABLET PO PRN (22:42)
[2019-05-24] MEDS: amLODIPine BESYLATE 2.5 MG TABLET (FP) PO SCH (09:03)
[2019-05-24] MEDS: PANTOPRAZOLE 40 MG TABLET (FP) PO SCH (09:03)
[2019-05-24 09:59] VITALS: BP 133/85; PULSE 90; TEMP 98
== END 2019-05-24 09:45 | disposition home or self-care (01) ==
LOC: JER 15:10 → JERBED 20:04 → J4W 05-22 15:16
PROVIDERS: ADMIT Internal Medicine; ATTEND Internal Medicine
PROC: 3E033GC Introduction of Other Therapeutic Substance into Peripheral Vein, Percutaneous Approach (ICD-10-PCS; principal; 2019-05-21)
DX: R07.89 Other chest pain (principal); M94.0 Chondrocostal junction syndrome [Tietze]; R00.1 Bradycardia, unspecified; K21.9 Gastro-esophageal reflux disease without esophagitis; F41.9 Anxiety disorder, unspecified; G47.33 Obstructive sleep apnea (adult) (pediatric); D64.9 Anemia, unspecified; E66.01 Morbid (severe) obesity due to excess calories; Z68.43 Body mass index [BMI] 50.0-59.9, adult; Z87.898 Personal history of other specified conditions; Z88.0 Allergy status to penicillin; Z88.8 Allergy status to other drugs, medicaments and biological substances; Z91.013 Allergy to seafood; Z91.041 Radiographic dye allergy status
CPT/HCPCS: 36415; 71045-TC-FY; 78452-TC; 80048; 80053; 82550; 83735; 84484; 84702; 84703; 85025; 85027; 85379; 85610; 85730; 93005; 93010; 93017; 93306-TC; 93970-TC; 99285-25; A9502; G0378; J2785

== ENCOUNTER 2021-06-28 15:05 | Emergency (ER) | payer OTHER ==
[2021-06-28 16:03] VITALS: BP 109/73; PULSE 107; TEMP 99.1; BMI 53.6
[2021-06-28] MEDS ORDERED: methylPREDNISolone NA SUCC 125 MG/2 ML VIAL IVPUSH ONE (16:57)
[2021-06-28] MEDS ORDERED: ONDANSETRON *ODT* 4 MG TABLET SL ONE (16:58)
[2021-06-28] MEDS ORDERED: SODIUM CHLORIDE 1,000 ML IV STA (17:03)
[2021-06-28] MEDS ORDERED: ONDANSETRON *ODT* 4 MG TABLET ONE (17:21)
[2021-06-28] MEDS ORDERED: methylPREDNISolone NA SUCC 125 MG/2 ML VIAL ONE (17:21)
[2021-06-28 17:36] LABS: BASO % 1.2 % (0-2.0); EOS % 0.1 % (0-4.5); HEMATOCRIT 38.6 % (32.4-45.2); HEMOGLOBIN 13.1 GM/dL (10.7-15.3); LYMPH % 59.5 % (8-40); MCHC 33.8 g/dl (32.0-36.0); MEAN CELL VOLUME 79.8 fl (80-96); MEAN PLT VOLUME 9.4 fl (7.5-11.1); MONO % 10.9 % (3.8-10.2); NEUT % 28.3 % (42.8-82.8); PLATELET COUNT 242 10^3/uL (134-434); RBC 4.84 M/mm3 (3.60-5.2); WHITE BLOOD COUNT 3.3 K/mm3 (4.0-10.0)
[2021-06-28 18:02] LABS: ALBUMIN 3.5 g/dl (3.4-5.0); BLOOD UREA NITROGEN 11.6 mg/dL (7-18); CALCIUM 8.6 mg/dL (8.5-10.1)
[2021-06-28 18:07] LABS: BILIRUBIN,TOTAL 0.5 mg/dL (0.2-1); TOT PROT 8.5 g/dl (6.4-8.2)
[2021-06-28] MEDS ORDERED: METHOCARBAMOL 500 MG TABLET PO ONE (19:28)
[2021-06-28] MEDS ORDERED: METHOCARBAMOL 500 MG TABLET ONE (19:54)
[2021-06-29 14:07] LABS: SARS-CoV-2 NAA Detected (Not Detected)
== END 2021-06-28 20:00 | disposition home or self-care (01) ==
LOC: JER 15:05
PROC: 3E033GC Introduction of Other Therapeutic Substance into Peripheral Vein, Percutaneous Approach (ICD-10-PCS; principal; 2021-06-28)
PROC: 3E0337Z Introduction of Electrolytic and Water Balance Substance into Peripheral Vein, Percutaneous Approach (ICD-10-PCS; 2021-06-28)
DX: U07.1 COVID-19 (principal); R11.2 Nausea with vomiting, unspecified; K52.9 Noninfective gastroenteritis and colitis, unspecified
CPT/HCPCS: 36415; 71046-TC-FY; 80053; 85025; 87804; 99284-25; C9803; Q0162; U0003; U0005

== ENCOUNTER 2022-01-20 12:46 | Emergency (ER) | payer OTHER ==
[2022-01-20 12:56] VITALS: BP 113/75; PULSE 87; TEMP 98.1; BMI 52.4
[2022-01-20] MEDS ORDERED: IBUPROFEN 400 MG TABLET (FP) PO ONE ×2 (14:19→14:33)
[2022-01-20] MEDS ORDERED: CYCLOBENZAPRINE HCL 10 MG TABLET (FP) PO ONE (14:33)
[2022-01-20] MEDS ORDERED: CYCLOBENZAPRINE HCL 10 MG TABLET (FP) ONE (14:44)
== END 2022-01-20 18:15 | disposition home or self-care (01) ==
LOC: JER 12:46
DX: M54.9 Dorsalgia, unspecified (principal); M79.604 Pain in right leg
CPT/HCPCS: 72100-TC-FY; 73562-TC-RT-FY; 93005; 93010; 93971-TC; 99284-25

== ENCOUNTER 2022-02-14 13:05 | Emergency (ER) | payer OTHER ==
[2022-02-14 13:33] VITALS: TEMP 97.9; BMI 52.8
[2022-02-14] MEDS ORDERED: LIDOCAINE 5% TOPICAL PATCH TP ONE (15:00)
[2022-02-14] MEDS ORDERED: ACETAMINOPHEN 500 MG TABLET (FP) PO ONE (15:00)
[2022-02-14] MEDS ORDERED: diazePAM 5 MG TABLET PO ONE ×2 (15:09→22:44)
[2022-02-14] MEDS ORDERED: LIDOCAINE 5% TOPICAL PATCH ONE (15:23)
[2022-02-14] MEDS ORDERED: diazePAM 5 MG TABLET ONE ×2 (15:23→22:47)
[2022-02-14] MEDS ORDERED: ACETAMINOPHEN 500 MG TABLET (FP) ONE (15:23)
[2022-02-14 19:59] LABS: EPI CELLS 16 /uL (0-25.1); HYALINE CASTS 5 /uL (0-3.1); PH,URINE 5.5 (5.0-8.0); URINE APPEARANCE CLEAR; URINE BACTERIA 59 /uL (0-1359); URINE BILIRUBIN NEGATIVE (NEGATIVE); URINE COLOR YELLOW; URINE GLUCOSE (UA) NEGATIVE (NEGATIVE); URINE KETONE NEGATIVE (NEGATIVE); URINE LEUK ESTERASE NEGATIVE (NEGATIVE); URINE NITRITE NEGATIVE (NEGATIVE); URINE PROTEIN TRACE (NEGATIVE); URINE RBC 3592 /uL (0-23.9); URINE UROBILINOGEN 0.2 mg/dL (0.2-1.0); URINE WBC 13 /uL (0-25.8)
[2022-02-14 20:41] VITALS: BP 130/84; PULSE 54; RESP 16
[2022-02-14] MEDS ORDERED: IBUPROFEN 400 MG TABLET (FP) PO ONE ×2 (21:46→22:41)
[2022-02-14] MEDS ORDERED: LIDOCAINE PATCH REMOVAL MC SCH (22:00)
== END 2022-02-14 22:50 | disposition short-term general hospital (02) ==
LOC: JER 13:05
DX: R26.2 Difficulty in walking, not elsewhere classified (principal); M54.41 Lumbago with sciatica, right side; R29.898 Other symptoms and signs involving the musculoskeletal system
CPT/HCPCS: 72131-TC; 81003; 87086; 99291; C9803-CS; U0003; U0005

== ENCOUNTER 2023-06-07 23:10 | Emergency (ER) | payer OTHER ==
[2023-06-07 23:18] VITALS: TEMP 98.6; BMI 51.2
[2023-06-08] MEDS ORDERED: KETOROLAC TROMETHAMINE 30 MG/1 ML VIAL IVPUSH ONE ×2 (00:21→00:57)
[2023-06-08] MEDS ORDERED: KETOROLAC TROMETHAMINE 30 MG/1 ML VIAL ONE (00:38)
[2023-06-08] MEDS ORDERED: HYDROmorphone HCl 2 MG/ML VIAL IVPUSH ONE (00:39)
[2023-06-08] MEDS ORDERED: KETOROLAC TROMETHAMINE 15 MG/ML VIAL IVPUSH ONE (00:40)
[2023-06-08] MEDS ORDERED: SODIUM CHLORIDE 1,000 ML IV STA (00:40)
[2023-06-08] MEDS ORDERED: HYDROmorphone HCl 2 MG/ML VIAL ONE (00:59)
[2023-06-08 01:07] LABS: EOS % 2.2 % (0-4.5); HEMATOCRIT 33.4 % (32.4-45.2); HEMOGLOBIN 11.1 GM/dL (10.7-15.3); LYMPH % 31.5 % (8-40); MCH 27.2 pg (25.7-33.7); MCHC 33.3 g/dl (32.0-36.0); MEAN CELL VOLUME 81.6 fl (80-96); MEAN PLT VOLUME 8.6 fl (7.5-11.1); MONO % 8.4 % (3.8-10.2); NEUT % 56.9 % (42.8-82.8); PLATELET COUNT 445 10^3/uL (134-434); RDW 14.5 % (11.6-15.6); WHITE BLOOD COUNT 10.3 K/mm3 (4.0-10.0)
[2023-06-08 01:19] LABS: POTASSIUM 3.6 mmol/L (3.5-5.1)
[2023-06-08 01:21] LABS: CALCIUM 8.4 mg/dL (8.5-10.1)
[2023-06-08 01:22] LABS: ALBUMIN 3.1 g/dl (3.4-5.0); BLOOD UREA NITROGEN 8.8 mg/dL (7-18)
[2023-06-08 01:25] LABS: CREATININE 0.8 mg/dL (0.55-1.3)
[2023-06-08 01:26] LABS: BILIRUBIN,TOTAL 0.8 mg/dL (0.2-1); TOT PROT 7.2 g/dl (6.4-8.2)
[2023-06-08 01:33] LABS: URINE APPEARANCE CLEAR; URINE BILIRUBIN NEGATIVE (NEGATIVE); URINE COLOR YELLOW; URINE GLUCOSE (UA) NEGATIVE (NEGATIVE); URINE KETONE NEGATIVE (NEGATIVE); URINE LEUK ESTERASE NEGATIVE (NEGATIVE); URINE NITRITE NEGATIVE (NEGATIVE); URINE PROTEIN NEGATIVE (NEGATIVE)
[2023-06-08] MEDS ORDERED: CYCLOBENZAPRINE HCL 10 MG TABLET (FP) PO ONE (04:33)
[2023-06-08] MEDS ORDERED: CYCLOBENZAPRINE HCL 10 MG TABLET (FP) ONE (04:50)
[2023-06-08] MEDS ORDERED: GABAPENTIN 300 MG CAPSULE PO ONE (05:24)
[2023-06-08] MEDS ORDERED: ACETAMINOPHEN 500 MG TABLET (FP) PO ONE (05:24)
[2023-06-08] MEDS ORDERED: ACETAMINOPHEN 325 MG TABLET (FP) ONE (05:34)
[2023-06-08] MEDS ORDERED: GABAPENTIN 300 MG CAPSULE ONE (05:35)
[2023-06-08 06:25] VITALS: BP 132/86; PULSE 88; RESP 18
== END 2023-06-08 06:51 | disposition home or self-care (01) ==
LOC: JER 23:10
PROC: 3E033GC Introduction of Other Therapeutic Substance into Peripheral Vein, Percutaneous Approach (ICD-10-PCS; principal; 2023-06-08)
PROC: 3E0337Z Introduction of Electrolytic and Water Balance Substance into Peripheral Vein, Percutaneous Approach (ICD-10-PCS; 2023-06-08)
DX: M54.50 Low back pain, unspecified (principal); R10.32 Left lower quadrant pain; Z20.822 Contact with and (suspected) exposure to COVID-19
CPT/HCPCS: 0241U-QW; 36415; 71045-TC-FY; 74176-TC; 80053; 81003; 83690; 83735; 84703; 85025; 87086; 99285-25

== ENCOUNTER 2023-08-26 13:26 | Emergency (ER) | payer OTHER ==
[2023-08-26 13:35] VITALS: BMI 52.9
[2023-08-26] MEDS ORDERED: ONDANSETRON 4 MG/2 ML VIAL ONE (15:11)
[2023-08-26] MEDS ORDERED: ACETAMINOPHEN INJECTION 100 ML IVPB ONE (15:32)
[2023-08-26 15:55] LABS: BASO % 1.3 % (0-2.0); EOS % 9.2 % (0-4.5); HEMOGLOBIN 10.6 GM/dL (10.7-15.3); LYMPH % 44.7 % (8-40); MCH 27.5 pg (25.7-33.7); MCHC 32.2 g/dl (32.0-36.0); MEAN CELL VOLUME 85.3 fl (80-96); MEAN PLT VOLUME 8.3 fl (7.5-11.1); MONO % 8.7 % (3.8-10.2); NEUT % 36.1 % (42.8-82.8); PLATELET COUNT 486 10^3/uL (134-434); RBC 3.87 M/mm3 (3.60-5.2); RDW 15.5 % (11.6-15.6)
[2023-08-26] MEDS: ONDANSETRON 4 MG/2 ML VIAL IVPUSH ONE (16:08)
[2023-08-26] MEDS: LACTATED RINGERS SOLUTION 1000 ML INFUS.BAG IV ONE (16:08)
[2023-08-26] MEDS: ACETAMINOPHEN 1000 MG/100 ML BAG IVPB ONE (16:08)
[2023-08-26 16:23] LABS: POTASSIUM 4.4 mmol/L (3.5-5.1)
[2023-08-26 16:25] LABS: ALBUMIN 3.4 g/dl (3.4-5.0); BLOOD UREA NITROGEN 8.3 mg/dL (7-18); CALCIUM 8.8 mg/dL (8.5-10.1)
[2023-08-26 16:28] LABS: CREATININE 0.7 mg/dL (0.55-1.3)
[2023-08-26 16:30] LABS: BILIRUBIN,TOTAL 0.6 mg/dL (0.2-1); TOT PROT 7.7 g/dl (6.4-8.2)
[2023-08-26 17:35] VITALS: BP 119/72; PULSE 82; RESP 18; TEMP 98.3
== END 2023-08-26 17:20 | disposition home or self-care (01) ==
LOC: JER 13:26
PROC: 3E033NZ Introduction of Analgesics, Hypnotics, Sedatives into Peripheral Vein, Percutaneous Approach (ICD-10-PCS; principal; 2023-08-26)
PROC: 3E033GC Introduction of Other Therapeutic Substance into Peripheral Vein, Percutaneous Approach (ICD-10-PCS; 2023-08-26)
DX: R05.9 Cough, unspecified (principal); R42 Dizziness and giddiness; R11.0 Nausea; R50.9 Fever, unspecified; R07.0 Pain in throat; R07.89 Other chest pain; R19.7 Diarrhea, unspecified; Z20.822 Contact with and (suspected) exposure to COVID-19
CPT/HCPCS: 0241U-QW; 36415; 71045-TC-FY; 80053; 85025; 93005; 93010; 96374; 96375; 99285-25; J0131

== ENCOUNTER 2023-11-04 09:52 | Emergency (ER) | payer OTHER ==
[2023-11-04 09:57] VITALS: RESP 20; TEMP 98.4; BMI 51.2
[2023-11-04 11:18] LABS: BASO % 1.1 % (0-2.0); EOS % 12.3 % (0-4.5); HEMATOCRIT 36.2 % (32.4-45.2); HEMOGLOBIN 11.9 GM/dL (10.7-15.3); LYMPH % 37.2 % (8-40); MCH 27.4 pg (25.7-33.7); MCHC 32.8 g/dl (32.0-36.0); MEAN CELL VOLUME 83.4 fl (80-96); MEAN PLT VOLUME 8.8 fl (7.5-11.1); MONO % 14.2 % (3.8-10.2); NEUT % 35.2 % (42.8-82.8); PLATELET COUNT 408 10^3/uL (134-434); RBC 4.34 M/mm3 (3.60-5.2); RDW 14.8 % (11.6-15.6); WHITE BLOOD COUNT 5.4 K/mm3 (4.0-10.0)
[2023-11-04 11:23] LABS: EPI CELLS >36 /uL (0-25.1); HYALINE CASTS 9 /uL (0-3.1); PH,URINE 5.5 (5.0-8.0); URINE APPEARANCE CLOUDY; URINE BACTERIA 921 /uL (0-1359); URINE BILIRUBIN 1+ (NEGATIVE); URINE COLOR DK YELLOW; URINE GLUCOSE (UA) NEGATIVE (NEGATIVE); URINE KETONE TRACE (NEGATIVE); URINE LEUK ESTERASE 1+ (NEGATIVE); URINE NITRITE NEGATIVE (NEGATIVE); URINE PROTEIN 1+ (NEGATIVE); URINE WBC 64 /uL (0-25.8)
[2023-11-04 11:33] LABS: HCG,QUALITATIVE URINE Negative
[2023-11-04 11:43] LABS: POTASSIUM 5.8 mmol/L (3.5-5.1)
[2023-11-04] MEDS ORDERED: ACETAMINOPHEN INJECTION 100 ML IVPB ONE (11:43)
[2023-11-04] MEDS ORDERED: ONDANSETRON 4 MG/2 ML VIAL ONE (11:44)
[2023-11-04 11:47] LABS: ALBUMIN 3.6 g/dl (3.4-5.0); BLOOD UREA NITROGEN 7.9 mg/dL (7-18)
[2023-11-04 11:50] LABS: CREATININE 0.9 mg/dL (0.55-1.3)
[2023-11-04 11:51] LABS: BILIRUBIN,TOTAL 1.4 mg/dL (0.2-1)
[2023-11-04 11:52] LABS: TOT PROT 8.4 g/dl (6.4-8.2)
[2023-11-04] MEDS: SODIUM CHLORIDE 1,000 ML IV STA (12:02)
[2023-11-04] MEDS: ACETAMINOPHEN 1000 MG/100 ML BAG IVPB ONE (12:02)
[2023-11-04] MEDS: ONDANSETRON 4 MG/2 ML VIAL IVPUSH ONE (12:02)
[2023-11-04 13:07] LABS: POTASSIUM 3.9 mmol/L (3.5-5.1)
[2023-11-04 13:09] LABS: CALCIUM 8.9 mg/dL (8.5-10.1)
[2023-11-04 13:10] LABS: ALBUMIN 3.5 g/dl (3.4-5.0); BLOOD UREA NITROGEN 9.2 mg/dL (7-18)
[2023-11-04 13:13] LABS: CREATININE 0.8 mg/dL (0.55-1.3)
[2023-11-04 13:15] LABS: BILIRUBIN,TOTAL 1.3 mg/dL (0.2-1); TOT PROT 7.5 g/dl (6.4-8.2)
[2023-11-04] MEDS ORDERED: KETOROLAC TROMETHAMINE 30 MG/1 ML VIAL ONE (13:28)
[2023-11-04] MEDS: KETOROLAC TROMETHAMINE 30 MG/1 ML VIAL IVPUSH ONE (13:40)
[2023-11-04] MEDS ORDERED: CEFTRIAXONE 1 GM/50 ML BAG ONE (16:37)
[2023-11-04] MEDS: CEFTRIAXONE 1 GM in DEXTROSE 5%-WATER - 100 ML IVPB ONE (17:50)
[2023-11-04 18:56] VITALS: BP 117/60; PULSE 94
== END 2023-11-04 18:56 | disposition home or self-care (01) ==
LOC: JER 09:52
PROC: 3E03329 Introduction of Other Anti-infective into Peripheral Vein, Percutaneous Approach (ICD-10-PCS; principal; 2023-11-04)
PROC: 3E030NZ Introduction of Analgesics, Hypnotics, Sedatives into Peripheral Vein, Open Approach (ICD-10-PCS; 2023-11-04)
PROC: 3E0303Z Introduction of Anti-inflammatory into Peripheral Vein, Open Approach (ICD-10-PCS; 2023-11-04)
PROC: 3E030GC Introduction of Other Therapeutic Substance into Peripheral Vein, Open Approach (ICD-10-PCS; 2023-11-04)
PROC: 3E0337Z Introduction of Electrolytic and Water Balance Substance into Peripheral Vein, Percutaneous Approach (ICD-10-PCS; 2023-11-04)
DX: K80.20 Calculus of gallbladder without cholecystitis without obstruction (principal); N30.00 Acute cystitis without hematuria; U07.1 COVID-19; M79.10 Myalgia, unspecified site; R11.2 Nausea with vomiting, unspecified; R19.7 Diarrhea, unspecified; R05.9 Cough, unspecified; R50.9 Fever, unspecified; R10.13 Epigastric pain; R10.30 Lower abdominal pain, unspecified
CPT/HCPCS: 0241U-QW; 36415; 74176-TC; 76705-TC; 80053; 81003; 83690; 84703; 85025; 87086; 93005; 93010; 99285-25; J0131

== ENCOUNTER 2024-06-06 15:58 | Observation (INO) | payer OTHER ==
[2024-06-06 16:06] VITALS: BMI 52.8
[2024-06-06 17:48] LABS: EOS % 9.3 % (0-4.5); HEMOGLOBIN 11.6 GM/dL (10.7-15.3); LYMPH % 41.2 % (8-40); MCH 27.6 pg (25.7-33.7); MCHC 33.1 g/dl (32.0-36.0); MEAN CELL VOLUME 83.5 fl (80-96); MEAN PLT VOLUME 9.2 fl (7.5-11.1); MONO % 7.1 % (3.8-10.2); NEUT % 41.4 % (42.8-82.8); PLATELET COUNT 401 10^3/uL (134-434); RBC 4.19 M/mm3 (3.60-5.2); RDW 14.8 % (11.6-15.6); WHITE BLOOD COUNT 5.6 K/mm3 (4.0-10.0)
[2024-06-06 17:55] LABS: INR 1.1 (0.83-1.09); PROTHROMBIN TIME (PATIENT) 12.4 SEC (9.7-13.0)
[2024-06-06 17:58] LABS: ACTIVATED PTT 32.1 SECONDS (25.2-36.5)
[2024-06-06 18:06] LABS: POTASSIUM 4.9 mmol/L (3.5-5.1)
[2024-06-06 18:07] LABS: MAGNESIUM 2.2 mg/dL (1.8-2.4)
[2024-06-06 18:10] LABS: BLOOD UREA NITROGEN 10.5 mg/dL (7-18)
[2024-06-06 18:12] LABS: CALCIUM 9.1 mg/dL (8.5-10.1)
[2024-06-06 18:13] LABS: ALBUMIN 3.5 g/dl (3.4-5.0)
[2024-06-06 18:14] LABS: CREATININE 0.7 mg/dL (0.55-1.3)
[2024-06-06 18:15] LABS: BILIRUBIN,TOTAL 0.5 mg/dL (0.2-1)
[2024-06-06] MEDS: ENOXAPARIN NA (PORCINE) 120 MG/0.8 ML DISP.SYRIN SQ SCH (23:01)
[2024-06-06] MEDS: ENOXAPARIN NA (PORCINE) 120 MG/0.8 ML DISP.SYRIN SQ ONE (23:33)
[2024-06-07 06:17] LABS: EOS % 11.4 % (0-4.5); HEMATOCRIT 34.9 % (32.4-45.2); HEMOGLOBIN 11.2 GM/dL (10.7-15.3); LYMPH % 39.5 % (8-40); MCH 27.2 pg (25.7-33.7); MEAN CELL VOLUME 85.1 fl (80-96); MEAN PLT VOLUME 9.4 fl (7.5-11.1); MONO % 7.4 % (3.8-10.2); NEUT % 40.7 % (42.8-82.8); PLATELET COUNT 342 10^3/uL (134-434); RDW 14.9 % (11.6-15.6); WHITE BLOOD COUNT 5.5 K/mm3 (4.0-10.0)
[2024-06-07 06:27] LABS: INR 1.12 (0.83-1.09); PROTHROMBIN TIME (PATIENT) 12.6 SEC (9.7-13.0)
[2024-06-07 06:37] LABS: POTASSIUM 3.9 mmol/L (3.5-5.1)
[2024-06-07 06:40] LABS: BLOOD UREA NITROGEN 10.2 mg/dL (7-18)
[2024-06-07 06:43] LABS: CREATININE 0.6 mg/dL (0.55-1.3)
[2024-06-07] MEDS ORDERED: morphine SULFATE 4 MG/ML VIAL IVPUSH PRN (07:16)
[2024-06-07] MEDS ORDERED: amLODIPine BESYLATE 2.5 MG TABLET (FP) ONE (10:30)
[2024-06-07] MEDS ORDERED: ENOXAPARIN NA (PORCINE) 60 MG/0.6 ML DISP.SYRIN SQ ONE (10:30)
[2024-06-07] MEDS: amLODIPine BESYLATE 2.5 MG TABLET (FP) PO SCH (10:31)
[2024-06-07] MEDS: ENOXAPARIN NA (PORCINE) 120 MG/0.8 ML DISP.SYRIN SQ SCH (10:31)
[2024-06-07] MEDS ORDERED: ACETAMINOPHEN 325 MG TABLET (FP) PO PRN (11:00)
[2024-06-07] MEDS ORDERED: ACETAMINOPHEN INJECTION 100 ML ONE (17:00)
[2024-06-07] MEDS: ACETAMINOPHEN 1000 MG/100 ML BAG IVPB PRN (17:15)
[2024-06-07] MEDS: ONDANSETRON 4 MG/2 ML VIAL IVPUSH PRN (18:45)
[2024-06-07] MEDS: KETOROLAC TROMETHAMINE 15 MG/ML VIAL IVPUSH ONE (18:47)
[2024-06-07] MEDS: ENOXAPARIN NA (PORCINE) 40 MG/0.4 ML DISP.SYRIN SQ SCH (22:54)
[2024-06-08 08:10] LABS: PH,URINE 5.5 (5.0-8.0); URINE APPEARANCE CLEAR; URINE BILIRUBIN NEGATIVE (NEGATIVE); URINE COLOR YELLOW; URINE GLUCOSE (UA) NEGATIVE (NEGATIVE); URINE KETONE NEGATIVE (NEGATIVE); URINE LEUK ESTERASE NEGATIVE (NEGATIVE); URINE NITRITE NEGATIVE (NEGATIVE); URINE PROTEIN NEGATIVE (NEGATIVE)
[2024-06-08] MEDS: ACETAMINOPHEN/CAFFEINE/BUTALBITAL 1 TAB PO PRN (13:15)
[2024-06-09] MEDS: POLYETHYLENE GLYCOL (HEALTHYLAX) 3350 17 GM PACKET PO ONE (00:57)
[2024-06-09] MEDS ORDERED: MAG HYDROX/AL HYDROX/SIMETH 30 ML UNIT-DOSE CUP PO PRN (05:26)
[2024-06-09] MEDS: SODIUM PHOSPHATE/NA BIPHOS 133 ML ENEMA RC PRN (10:05)
[2024-06-10 02:38] VITALS: RESP 18
[2024-06-10 14:43] VITALS: BP 119/76; PULSE 71; TEMP 98.4
== END 2024-06-10 15:52 | disposition home or self-care (01) ==
LOC: JER 15:58 → JERBED 22:05 → J4S 06-07 18:20
PROVIDERS: ADMIT Student in an Organized Health Care Education/Training Program; ATTEND Internal Medicine
PROC: 3E033GC Introduction of Other Therapeutic Substance into Peripheral Vein, Percutaneous Approach (ICD-10-PCS; principal; 2024-06-06)
PROC: 3E013GC Introduction of Other Therapeutic Substance into Subcutaneous Tissue, Percutaneous Approach (ICD-10-PCS; 2024-06-06)
DX: R55 Syncope and collapse (principal); R79.1 Abnormal coagulation profile; R00.2 Palpitations; R07.89 Other chest pain; D64.9 Anemia, unspecified; F41.9 Anxiety disorder, unspecified; E66.01 Morbid (severe) obesity due to excess calories; Z68.43 Body mass index [BMI] 50.0-59.9, adult; G47.33 Obstructive sleep apnea (adult) (pediatric); M54.50 Low back pain, unspecified; Z91.041 Radiographic dye allergy status; Z87.891 Personal history of nicotine dependence; Z88.0 Allergy status to penicillin; Z91.013 Allergy to seafood; Z88.8 Allergy status to other drugs, medicaments and biological substances
CPT/HCPCS: 0241U-QW; 36415; 71046-TC-FY; 80048; 80053; 81003; 82962; 83735; 84439; 84443; 84484; 85025; 85379; 85610; 85730; 86140; 86850; 86900; 86901; 93005; 93010; 93306-TC; 93970-TC; 96372; 96374; 96375; 99285-25; G0378; J0131

== ENCOUNTER 2024-06-27 11:03 | Emergency (ER) | payer OTHER ==
[2024-06-27 12:15] VITALS: BP 135/95; PULSE 73; RESP 18; TEMP 98.6; BMI 47.8
[2024-06-27] MEDS ORDERED: ACETAMINOPHEN 500 MG TABLET (FP) ONE (13:08)
[2024-06-27] MEDS: ACETAMINOPHEN 500 MG TABLET (FP) PO ONE (13:13)
== END 2024-06-27 14:50 | disposition home or self-care (01) ==
LOC: JER 11:03
DX: R05.1 Acute cough (principal); J06.9 Acute upper respiratory infection, unspecified; R06.02 Shortness of breath; R50.9 Fever, unspecified; Z20.822 Contact with and (suspected) exposure to COVID-19
CPT/HCPCS: 0241U-QW; 71046-TC-FY; 93005; 93010; 99285-25